=== PATIENT | female | born 1985 | race African-American/Black ===

== ENCOUNTER 2024-10-03 14:16 | Emergency (ER) | payer BC, SELFPAY ==
--- NOTE | ~2024-10-03 | XR_ITS ---
EXAMINATION: XR chest 2V Exam Date/Time: 10/03/2024 15:00 HOOK UP HISTORY: cp Comparison: None. RESULT: Lines, tubes, and devices: Right upper quadrant surgical clips. Lungs and pleura: Clear. Cardiomediastinal silhouette: Stable. Other: No acute osseous or upper abdominal finding. IMPRESSION: No acute cardiopulmonary process. Reviewed, dictated and finalized at location K. UP
--- NOTE | ~2024-10-03 | CT_ITS ---
EXAMINATION: CTA chest abdomen pelvis DATE: 10/03/2024 16:04 INDICATION: Chest and abdominal pain . TECHNIQUE: Computed tomography angiography of the chest, abdomen, and pelvis was performed with 150 m L Omnipaque-350 intravenous contrast in the arterial phase. Automated exposure control and iterative reconstruction technique were employed. The dose-length product was 666.26 mGy-cm. COMPARISON: X-ray chest, same date FINDINGS: CHEST: Thoracic aorta: No significant dilation. No dissection. Lung parenchyma and airways: Lungs and airways are clear. Thoracic inlet, axillae and chest wall: No thyroid or soft tissue mass. No axillary lymphadenopathy. Mediastinum: No mass or lymphadenopathy. Heart and pericardium: Normal heart size. No pericardial effusion. Coronary artery calcifications: Absent. Pleura: No effusion or mass. Thoracic bones: No acute osseous finding in the chest. ABDOMEN/PELVIS: Liver: Enlarged. Biliary/Gallbladder: Gallbladder is absent. No bile duct dilation. Pancreas: No mass or duct dilation. Spleen: Normal. Adrenals:No mass. Kidneys: No suspicious mass, obstructing stone, or hydronephrosis. GI tract: No small or large bowel dilation. Normal appendix. Mesentery/Peritoneum: No ascites, mass, or free air. Surgical clips anterior to the gastric antrum an d the posterior aspect of the liver dome. The latter may represent a dropped clip. Retroperitoneum: No mass . No dissection, aneurysm, or significant aortic branch vessel stenosis. Pelvis: Normal appearing urinary bladder partially filled with contrast. Absent uterus. Normal bilate ral ovaries. Soft Tissues: Small fat-containing umbilical hernia with mild soft tissue thickening and stranding. Abdominopelvic bones: No acute osseous finding in the abdomen/pelvis. IMPRESSION: Mild hepatomegaly. Possible dropped surgical clip at the liver dome. Mild soft tissue thickening and stranding at a small fat-containing umbilical hernia, correlate for c linical findings of inflammation/infection. Otherwise unremarkable CTA chest abdomen and pelvis findings. Reviewed, dictated and finalized at location K. CLERK IMPRESSION: Mild hepatomegaly. Possible dropped surgical clip at the liver dome. Mild soft tissue thickening and stranding at a small fat-containing umbilical h ernia, correlate for clinical findings of inflammation/infection. Otherwise unremarkable CTA chest abdomen and pelvis findings.
[2024-10-03 14:18] VITALS: BP 210/113; PULSE 92; RESP 18; TEMP 36.7; O2SAT 100
--- NOTE | 2024-10-03 14:25 | ECG_ITS ---
Test Date: 2024-10-03 14:29:24 Measurements Intervals [place] Rate: 82 P: 59 UT: 212 QRS: -29 QRSD: 92 T: 80 QT: 374 QTc: 437 Interpretive Statements SINUS RHYTHM WITH FIRST DEGREE AV BLOCK BORDERLINE LEFT AXIS DEVIATION [QRS AXIS < -20] VOLTAGE CRITERIA FOR LVH [MEETS CRITERIA IN ONE OF: R(aVL), S(V1), R(V5), R(V5/V6)+S(V1)] NONSPECIFIC T-WAVE ABNORMALITY No previous ECG available for comparison Electronically Signed On 10-04-2024 18:12:41 [employer] CONCIERGE by Rowdy Baez M.D.
[2024-10-03 14:35] LABS: Basophils Absolute Auto 0.1 K/mm3 (0.0-0.1); Basophils Percent Auto 0.9 % (0.2-1.2); Eosinophils Absolute Auto 0.2 K/mm3 (0-0.3); Eosinophils Percent Auto 3.5 % (0-4.4); Hematocrit 42.2 % (37.0-47.0); Immature Granulocyte Absolute 0.01 K/mm3 (0.00-0.031); Immature Granulocyte Percent A 0.2 % (0-0.5); Lymphocytes Absolute Auto 2.02 K/mm3 (0.9-3.2); Lymphocytes Percent Auto 37.4 % (18.3-44.2); Mean Corpuscular HGB Conc 33.2 g/dl (32-36); Mean Corpuscular Hemoglobin 26.9 pg (26-34); Mean Corpuscular Volume 81.2 fl (80-100); Mean Platelet Volume 9.8 fl (7.4-10.4); Monocytes Absolute Auto 0.4 K/mm3 (0.1-0.6); Monocytes Percent Auto 7.4 % (2.6-8.5); Neutrophils Absolute Auto 2.7 K/mm3 (1.3-6.7); Neutrophils Percent Auto 50.6 % (45.5-73.1); Platelet Count Result 253 k/mm3 (150-375); Red Cell Distribution Width 14.5 % (11.5-14.5); White Blood Count 5.4 K/mm3 (4.5-10.0)
--- NOTE | 2024-10-03 14:40 | ED_ITS ---
HPI - Chest Pain General Chief Complaint: Chest Pain Stated Complaint: chest pain Time Seen by Provider: 10/03/24 14:26 Source: patient Mode of arrival: ambulatory Limitations: no limitations History of Present Illness HPI narrative: This is a 38-year-old female, with reported history of cardiac disease after a , who presents emergency department complaining of substernal chest pain radiating to the left arm for the past 3 days. She describes the pain as sharp, radiating to the midback without any obvious aggravating or alleviating factors. She denies associated nausea, vomiting, abdominal pain or shortness of breath. She has no other complaints at this time. Related Data Allergies Allergy/AdvReac Type Severity Reaction Status Date / Time codeine Allergy Rash Verified 10/03/24 14:50 Penicillins Allergy Rash Verified 10/03/24 14:50 Review of Systems 2 Review of Systems: All systems reviewed & are unremarkable except as noted in HPI and below PMFSH Past Medical History Medical History Hypertension Surgical History Surgical History History of partial hysterectomy Social History Social History Smoking status: Current every day smoker Alcohol intake: current Substance use: current Substance use type: marijuana Exam 2 Narrative: GENERAL: Well-developed, well-nourished, and in no acute distress. HEAD: Normocephalic, atraumatic. EYES: PERRLA and EOMI. ENT: Nares clear, no rhinorrhea or epistaxis. Mucous membranes moist. Oropharynx without tonsillar hypertrophy exudate or other lesions. Bilateral TMs pearly calloway nonbulging NECK: Supple. No adenopathy or masses. No carotid bruits or JVD CHEST: Clear to auscultation. No respiratory distress. No wheezes rales or rhonchi HEART: Regular rate and rhythm. No murmur heard. Normal peripheral pulses. ABDOMEN: Soft, nontender, nondistended, normal active bowel sounds. EXTREMITIES: Normal range of motion. No edema. SKIN: Warm, dry, no rash. NEURO: Alert and oriented x3. No focal deficit. Moving all 4 limbs spontaneously PSYCH: Normal mood and affect. Course Course Emergency Course: 18:00 - Initial troponin negative. EKG not concerning for ischemia. Chest x- ray unremarkable. Cbc and chemistries unremarkable, including a lipase within normal limits. CT dissection protocol not concerning for dissection, or acute intra thoracic process. Incidentally, a surgical clip is noted at the dome of the liver and is thought to be a dropped clip. There is also an umbilical hernia with some fat stranding. The patient denies abdominal pain and exam does not elicit pain. Considering the patient's cardiac history, I discussed management options, including admission for observation verses repeat troponin and outpatient follow-up. The patient elects latter pending repeat results. 18:29 - Repeat troponin negative. The patient's blood pressure has improved without direct intervention. Will discharge with refill of the patient's Coreg and recommendation for primary care follow-up. I discussed the findings and recommendations with the patient. Discussed return and emergency precautions including signs/symptoms of ACS and respiratory distress. The patient voiced understanding and agreement with the plan. All questions answered to her satisfaction. Vital Signs Vital signs: Vital Signs Temperature 98.0 F 10/03/24 14:18 Pulse Rate 92 10/03/24 14:18 Respiratory Rate 18 10/03/24 14:18 Blood Pressure 210/113 H 10/03/24 14:18 Pulse Oximetry 100 10/03/24 14:18 Oxygen Delivery Room Air 10/03/24 14:18 Temperature 98.0 F 10/03/24 14:18 Pulse Rate 58 L 10/03/24 17:12 Respiratory Rate 16 10/03/24 17:12 Blood Pressure 162/115 H 10/03/24 17:12 Pulse Oximetry 100 10/03/24 17:12 Oxygen Delivery Room Air 10/03/24 14:44 MDM - Chest Pain MDM Narrative Medical decision making narrative: Plan: Labs, imaging, EKG, troponin, pain control, reassess Differential Diagnosis Differential diagnosis: Likely pneumothorax, costochondritis, biliary colic and other (ACS, dissection, pancreatitis, pleurisy, pericarditis, pneumonia, metabolic abnormality, other) Lab Data 10/03/24 14:30 10/03/24 14:30 Labs: Lab Results 10/03/24 10/03/24 Range/Units 14:30 17:19 WBC 5.4 (4.5-10.0) K/mm3 RBC 5.20 (4.2-5.4) M/mm3 Hgb 14.0 (12.0-15.0) g/dL Hct 42.2 (37.0-47.0) % MCV 81.2 (80-100) fl MCH 26.9 (26-34) pg MCHC 33.2 (32-36) g/dl RDW 14.5 (11.5-14.5) % Plt Count 253 (150-375) k/mm3 MPV 9.8 (7.4-10.4) fl Immature Gran % (Auto) 0.2 (0-0.5) % Neut % (Auto) 50.6 (45.5-73.1) % Lymph % (Auto) 37.4 (18.3-44.2) % Rains % (Auto) 7.4 (2.6-8.5) % Eos % (Auto) 3.5 (0-4.4) % Baso % (Auto) 0.9 (0.2-1.2) % Lymph # (Auto) 2.02 (0.9-3.2) K/mm3 Rains # (Auto) 0.4 (0.1-0.6) K/mm3 Eos # (Auto) 0.2 (0-0.3) K/mm3 Baso # (Auto) 0.1 (0.0-0.1) K/mm3 Abs Immat Gran (auto) 0.01 (0.00-0.031) K/mm3 Absolute Neuts (auto) 2.7 (1.3-6.7) K/mm3 Absolute Nucleated RBC 0.000 (0.0-0.012) K/mm3 Nucleated RBC % 0.0 (0.0-0.2) % PT 14.2 (11.1-14.7) Seconds INR 1.1 APTT 31.9 (22.3-36.8) Seconds Sodium 140 (137-145) mmol/L Potassium 3.8 (3.4-5.0) mmol/L Chloride 101 (98-107) mmol/L Carbon Dioxide 27 (22-30) mmol/L Anion Gap 12 (4-12) mmol/L BUN 15 (7-17) mg/dL Creatinine 0.95 (0.7-1.0) mg/dL Estim Creat Clear Calc 79 ml/min Estimated GFR > 60 (59 - ) Glucose 70 (65-110) mg/dL Calcium 9.8 (8.4-10.2) mg/dL Total Bilirubin 0.6 (0.2-1.3) mg/dL AST 31 (14-36) U/L ALT 19 (6-35) U/L Alkaline Phosphatase 70 (38-126) U/L Troponin I < 0.012 < 0.012 (0.000-0.034) ng/mL Total Protein 8.0 (6.3-8.2) g/dL Albumin 4.9 (3.5-5.1) g/dL Lipase 145 (23-300) U/L ECG Data EKG #1: Attestation: I personally reviewed and interpreted this ECG as follows: ECG completion date: 10/03/24 ECG completion time: 14:29 Prior ECG tracings: not available for review Interpretation: Sinus rhythm, rate 82, left axis deviation, no ST segment elevations concerning for ischemia, T-wave inversions in lead 1 and aVL, first-degree AV block, otherwise normal intervals with QTC of 412. Discharge Plan Discharge Clinical Impression: Chest pain Qualifiers: Chest pain type: unspecified Qualified Code(s): R07.9 - Chest pain, unspecified Hypertension Qualifiers: Hypertension type: unspecified Qualified Code(s): I10 - Essential (primary) hypertension Patient Disposition: Home, Self-Care Condition: Stable Instructions: Antibiotic Form, Chest Pain (ED) Additional Instructions: You were seen in the emergency department. Your labs and EKG are not concerning for ongoing injury to the heart. A CT scan of the chest abdomen and pelvis was not concerning for injury to the large vessel or ongoing process within the lungs, however it does demonstrate a surgical clip at the top of the liver that appears to be misplaced. If you develop new or worsening chest pain, shortness of breath, loss of consciousness, or if you have other emergent concerns for life, limb, or eyesight, return to the emergency department. Patient Language: Qatari Prescriptions: New carvedilol [Coreg] 12.5 mg tablet 12.5 mg PO Q12H Qty: 60 0RF Rx Instructions: must administer with a meal/food Follow-up/Referrals: PHYSICIAN NOT ON STAFF,NONSTAFF [Non-Staff] - Jeffery Barahona MD [Physician] - 1 Week Time of Disposition: 18:29
[2024-10-03 14:45] VITALS: BP 209/111; PULSE 73; RESP 16; O2SAT 100
[2024-10-03 14:50] LABS: Alanine Aminotransferase 19 U/L (6-35); Albumin Level 4.9 g/dL (3.5-5.1); Alkaline Phosphatase 70 U/L (38-126); Anion Gap 12 mmol/L (4-12); Aspartate Amino Transferase 31 U/L (14-36); Bilirubin,Total 0.6 mg/dL (0.2-1.3); Blood Urea Nitrogen 15 mg/dL (7-17); Calcium 9.8 mg/dL (8.4-10.2); Carbon Dioxide 27 mmol/L (22-30); Chloride 101 mmol/L (98-107); Estimated CRCL calculation 79 ml/min; Estimated Glomerular Filt Rate > 60; Glucose 70 mg/dL (65-110); Lipase 145 U/L (23-300); Potassium 3.8 mmol/L (3.4-5.0); Sodium 140 mmol/L (137-145)
[2024-10-03] MEDS: NITROGLYCERIN SL 0.4 MG TABLET SUBLINGUAL (14:50)
[2024-10-03] MEDS: MORPHINE SULFATE (*CRX) 4 MG/ML INJ IV PUSH (14:51)
[2024-10-03] MEDS: ASPIRIN 81 MG CHEWABLE TABLET 324 MG PO (14:53)
[2024-10-03 14:56] LABS: INR 1.1; Prothrombin Time 14.2 Seconds (11.1-14.7)
[2024-10-03 14:57] LABS: Partial Thromboplastin Time 31.9 Seconds (22.3-36.8)
[2024-10-03 15:01] LABS: Troponin I < 0.012 ng/mL (0.000-0.034)
--- NOTE | 2024-10-03 17:06 | ECG_ITS ---
Test Date: 2024-10-03 17:16:48 Measurements Intervals [place] Rate: 58 P: 7 VT: 210 QRS: -30 QRSD: 97 T: 73 QT: 444 QTc: 437 Interpretive Statements SINUS BRADYCARDIA WITH FIRST DEGREE AV BLOCK BORDERLINE LEFT AXIS DEVIATION [QRS AXIS < -20] POSSIBLE LEFT VENTRICULAR HYPERTROPHY [VOLTAGE CRITERIA PLUS LAE OR QRS WIDENING] NONSPECIFIC T-WAVE ABNORMALITY Compared to ECG 10/03/2024 14:29:24 Sinus rhythm no longer present T-wave abnormality still present Electronically Signed On 10-04-2024 18:11:34 BARREL SCRAPER by Rowdy Baez M.D.
[2024-10-03 17:12] VITALS: BP 162/115; PULSE 58; RESP 16; O2SAT 100
[2024-10-03 18:17] LABS: Troponin I < 0.012 ng/mL (0.000-0.034)
[2024-10-03 19:19] VITALS: BP 173/99; PULSE 69; RESP 16; O2SAT 99
--- OUTSIDE RECORDS SUMMARY | 2024-10-07 10:44 | XMS_ITS | Clinical Summary ---
Author Organization [place] [id number] [facility] Address [address] [place] [address] Care Team Providers Care Licensed Mass Real Estate Appraiser Name Role Phone Francheska Andrea NP Primary Care Provider +1- [phone] Allergies Active Allergy Reactions Criticality Noted Date Comments Codeine Phenytoin Medications No known medications Active Problems Problem Noted Date Diagnosed Date High-risk 10/18/2013 Epilepsy 10/18/2013 Social History Tobacco Use Types Packs/Day Years Used Date Smoking Tobacco: Never Assessed Personal Safety Answer Date Recorded Have you ever been in or are you currently in a harmful physical or emotional relationship or is someone making you feel afraid or unsafe? 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 Gender Identity Not on file Sexual Orientation Not on file Obstetrics History Last Filed Vital Signs Vital Sign Reading Time Taken Comments Blood Pressure 131/72 04/22/2023 7:30 PM CDT Pulse 99 04/22/2023 7:30 PM CDT Temperature - - Respiratory Rate 14 04/22/2023 7:30 PM CDT Oxygen Saturation 97% 04/22/2023 7:30 PM CDT Inhaled Oxygen Concentration - - Weight 98.4 kg (217 lb) 04/22/2023 4:40 PM CDT Height - - Body Mass Index - - Plan of Treatment Health Maintenance Due Date Last Done Comments Cervical Cancer Screening 1984 Depression Screening 1984 Hepatitis C Screening 1984 Varicella Vaccines (1 of 2 - 13+ 2-dose series) 1997 DTaP/Tdap/Td Vaccine (1 - Tdap) 11/20/2000 1 Regular Well Visit/Exam 18-64 2002 Influenza Vaccine (#1) 2024 HPV Vaccines Aged Out No longer eligi ble based on patient's age to complete this topic Pneumococcal vaccine <65 Aged Out No longer eligible based on patient's age to complete this topic Insurance [facility] Care Teams Licensed Mass Real Estate Appraiser Relationship Specialty Start Date End Date Francheska Andrea NP PCP - General Nurse Practitioner 04/22/23
--- OUTSIDE RECORDS SUMMARY | 2024-10-07 10:44 | XMS_ITS | Referral Summary ---
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 Gender Identity Not on file Sexual Orientation Not on file Last Filed Vital Signs Vital Sign Reading [...] Mass Index - - Plan of Treatment [place] [address] [facility] Member Subscriber Plan / Payer (Ef fective 2020-Present) Name:Shanna Awad Relation to Subscriber:Self Name:Shanna Awad Payer ID:[id number] (NAIC) Group ID:[id number] Type:MEDICAID RISK OTHER Address: [address] [place] [id number] Care Teams Purification Director Relationship Specialty Start Date End Date Francheska Andrea NP PCP - General Nurse Practitioner 04/22/23
== END 2024-10-03 19:21 | disposition home or self-care (01) ==
PROVIDERS: Emergency Provider Preventive Medicine Aerospace Medicine
DX: R07.2 Precordial pain (principal); I10 Essential (primary) hypertension; F17.200 Nicotine dependence, unspecified, uncomplicated; Z90.711 Acquired absence of uterus with remaining cervical stump; I44.0 Atrioventricular block, first degree; R94.31 Abnormal electrocardiogram [ECG] [EKG]; R16.0 Hepatomegaly, not elsewhere classified
CPT/HCPCS: 36415; 71046; 71275; 74174; 80053; 83690; 84484; 85025; 85610; 85730; 93005; 96374; 99284; A9270; J2270; Q9967

== ENCOUNTER 2024-10-04 12:30 | Inpatient (IN) | payer BC, SELFPAY ==
[2024-10-04] VITALS (25 sets, daily range): BP systolic 147–236; BP diastolic 79–123; PULSE 65–94; RESP 5–24; TEMP 36.7–37; O2SAT 96–100; BMI 31.3
--- NOTE | ~2024-10-04 | US_ITS ---
Limited Abdominal Sonogram: Real-time sonographic imaging of the right upper quadrant was performed. Clinical History: Abnormal LFTs Findings: The liver appears normal with no evidence of mass lesion or bile duct dilatation. Main por gavino vein demonstrates normal direction of flow. The gallbladder is absent, compatible prior cholecyst ectomy. The common bile duct measures 5 mm. The visualized pancreas, aorta, and IVC are unremarkable . Impression: Status post cholecystectomy, otherwise unremarkable exam. Reviewed, dictated and finalized at location . ROPOLOGY LECTURER Impression: Status post cholecystectomy, otherwise unremarkable exam.
--- NOTE | ~2024-10-04 | XR_ITS ---
EXAMINATION: XR chest 1V portable DATE: 10/04/2024 13:27 INDICATION: Chest pain TECHNIQUE: frontal view of the chest was obtained. COMPARISON: Chest radiograph and CT dated 10/03/2024 FINDINGS: The lungs remain clear with no focal airspace opacities, pulmonary edema, pleural effusion or pneumot horax. The cardiomediastinal silhouette is normal. Cholecystectomy clips in the right upper quadrant. IMPRESSION: 1. No acute cardiopulmonary disease. Reviewed, dictated and finalized at location A. LIANCE QUALITY PERFORMANCE ANALYST
--- NOTE | 2024-10-04 13:13 | ECG_ITS ---
Test Date: 2024-10-04 14:32:19 Measurements Intervals [place] Rate: 69 P: 53 [place]: 234 QRS: -35 QRSD: 98 T: 61 QT: 428 QTc: 460 Interpretive Statements SINUS RHYTHM WITH FIRST DEGREE AV BLOCK LEFT AXIS DEVIATION [QRS AXIS < -30] POSSIBLE LEFT VENTRICULAR HYPERTROPHY [VOLTAGE CRITERIA PLUS LAE OR QRS WIDENING] NONSPECIFIC T-WAVE ABNORMALITY Compared to ECG 10/03/2024 17:16:48 Sinus bradycardia no longer present T-wave abnormality still present Electronically Signed On 10-04-2024 17:58:44 BU[employer]ING [employer]EL FORMER MACHINE by Rowdy Baez M.D.
[2024-10-04 13:44] LABS: Basophils Absolute Auto 0.1 K/mm3 (0.0-0.1); Basophils Percent Auto 1.5 % (0.2-1.2); Eosinophils Absolute Auto 0.1 K/mm3 (0-0.3); Eosinophils Percent Auto 2.3 % (0-4.4); Hematocrit 41.9 % (37.0-47.0); Hemoglobin 13.9 g/dL (12.0-15.0); Lymphocytes Absolute Auto 1.75 K/mm3 (0.9-3.2); Lymphocytes Percent Auto 44.5 % (18.3-44.2); Mean Corpuscular HGB Conc 33.2 g/dl (32-36); Mean Corpuscular Volume 81.5 fl (80-100); Mean Platelet Volume 9.9 fl (7.4-10.4); Monocytes Absolute Auto 0.3 K/mm3 (0.1-0.6); Monocytes Percent Auto 7.6 % (2.6-8.5); Neutrophils Absolute Auto 1.7 K/mm3 (1.3-6.7); Neutrophils Percent Auto 44.1 % (45.5-73.1); Platelet Count Result 236 k/mm3 (150-375); Red Blood Count 5.14 M/mm3 (4.2-5.4); Red Cell Distribution Width 14.5 % (11.5-14.5); White Blood Count 3.9 K/mm3 (4.5-10.0)
[2024-10-04 13:51] LABS: Add Urine Microscopic? NO; Appearance Urine Clear (Clear); Bilirubin Urine Negative (Negative); Blood Urine Negative (Negative); Color Urine Yellow (Yellow); Glucose Urine UA Negative (Negative); Ketones Urine Negative (Negative); Leukocyte Esterase Ur Negative LEU/UL (Negative); Nitrate Urine Negative (Negative); Protein Urine Negative (Negative); Specific Grav Ur 1.016 (1.001-1.035); Urobilinogen Urine 0.2 mg/dL (<2.0)
[2024-10-04 13:55] LABS: INR 1.1; Prothrombin Time 14.1 Seconds (11.1-14.7)
[2024-10-04 13:56] LABS: Partial Thromboplastin Time 33.3 Seconds (22.3-36.8)
[2024-10-04] MEDS: hydrALAZINE HCL 20 MG/ML VIAL 10 MG IV PUSH (14:00)
[2024-10-04] MEDS: ONDANSETRON INJ 4 MG/2 ML VIAL IV PUSH (14:00)
[2024-10-04 15:20] LABS: Alanine Aminotransferase 138 U/L (6-35); Albumin Level 4.7 g/dL (3.5-5.1); Alkaline Phosphatase 76 U/L (38-126); Anion Gap 8 mmol/L (4-12); Aspartate Amino Transferase 195 U/L (14-36); Bilirubin,Total 0.5 mg/dL (0.2-1.3); Blood Urea Nitrogen 13 mg/dL (7-17); Calcium 9.6 mg/dL (8.4-10.2); Carbon Dioxide 33 mmol/L (22-30); Chloride 97 mmol/L (98-107); Estimated CRCL calculation 80 ml/min; Estimated Glomerular Filt Rate > 60; Glucose 84 mg/dL (65-110); Lipase 42 U/L (23-300); Potassium 3.3 mmol/L (3.4-5.0); Sodium 138 mmol/L (137-145)
[2024-10-04 15:32] LABS: NT Pro B Type Natriuretic Pept 728 pg/mL (19.9-100); Troponin I 0.017 ng/mL (0.000-0.034)
--- NOTE | 2024-10-04 15:57 | ED.GENADULT ---
HPI - General Adult General Chief complaint: Recheck/Abnormal Lab/Rx Stated complaint: high BP Time Seen by Provider: 10/04/24 13:07 History of Present Illness HPI narrative: Patient 38-year-old female who presents emergency department with chief complaint of hypertension. Patient reports that she has history of hypertension has been off of medications was seen in the emergency department over the weekend and was given a prescription for Coreg the patient reports she was unable to get it filled and reports that she has full been having some tightness in her chest at times. The patient states she is our primary care provider today who recommended that she come back to the emergency department as her blood pressure was in the 200s. Related Data Allergies Allergy/AdvReac Type Severity Reaction Status Date / Time codeine Allergy Rash Verified 10/03/24 14:50 Penicillins Allergy Rash Verified 10/03/24 14:50 Review of Systems Review of Systems: A 10 system review of systems was completed on the patient and is negative except for what is stated in the HPI. Nursing and ancillary documentation was reviewed. [facility], [facility] Past Medical History Medical History Hypertension Surgical History Surgical History History of partial hysterectomy Social History Social History Smoking status: Current every day smoker Alcohol intake: current Substance use: current Substance use type: marijuana Exam Narrative: GENERAL: Well-appearing, well-nourished, and in no acute distress. HEAD: Normocephalic, atraumatic. EYES: PERRLA and EOMI. ENT: Nares clear, no rhinorrhea or epistaxis. Mucous membranes moist. NECK: Supple. CHEST: Clear to auscultation. No respiratory distress. HEART: Regular rate and rhythm. No murmur heard. Normal peripheral pulses. ABDOMEN: Soft, nontender, nondistended, normal active bowel sounds. EXTREMITIES: Normal range of motion. No edema. SKIN: Warm, dry, no rash. NEURO: No focal deficits. Alert and oriented x3. PSYCH: Normal mood and affect. Course Vital Signs Vital signs: Vital Signs Temperature 36.7 C 10/04/24 13:08 Pulse Rate 65 10/04/24 13:08 Respiratory Rate 13 10/04/24 13:08 Blood Pressure 225/123 H 10/04/24 13:08 Pulse Oximetry 99 10/04/24 13:08 Oxygen Delivery Room Air 10/04/24 13:08 Temperature 36.7 C 10/04/24 14:31 Pulse Rate 73 10/04/24 15:01 Respiratory Rate 12 10/04/24 15:01 Blood Pressure 188/89 H 10/04/24 15:01 Pulse Oximetry 100 10/04/24 15:01 Oxygen Delivery Room Air 10/04/24 13:08 Medical Decision Making Vital Signs Vital Signs: Vital Signs Temperature 36.7 C 10/04/24 13:08 Pulse Rate 65 10/04/24 13:08 Respiratory Rate 13 10/04/24 13:08 Blood Pressure 225/123 H 10/04/24 13:08 Pulse Oximetry 99 10/04/24 13:08 Oxygen Delivery Room Air 10/04/24 13:08 Temperature 36.7 C 10/04/24 14:31 Pulse Rate 73 10/04/24 15:01 Respiratory Rate 12 10/04/24 15:01 Blood Pressure 188/89 H 10/04/24 15:01 Pulse Oximetry 100 10/04/24 15:01 Oxygen Delivery Room Air 10/04/24 13:08 Lab Data 10/04/24 13:37 10/04/24 13:37 Labs: Lab Results 10/04/24 10/04/24 Range/Units 13:37 13:42 WBC 3.9 L (4.5-10.0) K/mm3 RBC 5.14 (4.2-5.4) M/mm3 Hgb 13.9 (12.0-15.0) g/dL Hct 41.9 (37.0-47.0) % MCV 81.5 (80-100) fl MCH 27.0 (26-34) pg MCHC 33.2 (32-36) g/dl RDW 14.5 (11.5-14.5) % Plt Count 236 (150-375) k/mm3 MPV 9.9 (7.4-10.4) fl Immature Gran % (Auto) 0.0 (0-0.5) % Neut % (Auto) 44.1 L (45.5-73.1) % Lymph % (Auto) 44.5 H (18.3-44.2) % Fisher % (Auto) 7.6 (2.6-8.5) % Eos % (Auto) 2.3 (0-4.4) % Baso % (Auto) 1.5 H (0.2-1.2) % Lymph # (Auto) 1.75 (0.9-3.2) K/mm3 Fisher # (Auto) 0.3 (0.1-0.6) K/mm3 Eos # (Auto) 0.1 (0-0.3) K/mm3 Baso # (Auto) 0.1 (0.0-0.1) K/mm3 Abs Immat Gran (auto) 0.00 (0.00-0.031) K/mm3 Absolute Neuts (auto) 1.7 (1.3-6.7) K/mm3 Absolute Nucleated RBC 0.000 (0.0-0.012) K/mm3 Nucleated RBC % 0.0 (0.0-0.2) % PT 14.1 (11.1-14.7) Seconds INR 1.1 APTT 33.3 (22.3-36.8) Seconds Sodium 138 (137-145) mmol/L Potassium 3.3 L (3.4-5.0) mmol/L Chloride 97 L (98-107) mmol/L Carbon Dioxide 33 H (22-30) mmol/L Anion Gap 8 (4-12) mmol/L BUN 13 (7-17) mg/dL Creatinine 0.94 (0.7-1.0) mg/dL Estim Creat Clear Calc 80 ml/min Estimated GFR > 60 (59 - ) Glucose 84 (65-110) mg/dL Calcium 9.6 (8.4-10.2) mg/dL Total Bilirubin 0.5 (0.2-1.3) mg/dL AST 195 H (14-36) U/L ALT 138 H (6-35) U/L Alkaline Phosphatase 76 (38-126) U/L Troponin I 0.017 (0.000-0.034) ng/mL NT-Pro-B Natriuret Pep 728 H (19.9-100) pg/mL Total Protein 8.0 (6.3-8.2) g/dL Albumin 4.7 (3.5-5.1) g/dL Lipase 42 (23-300) U/L Urine Color Yellow (Yellow) Urine Appearance Clear (Clear) Urine pH 6.0 (5.0-9.0) Ur Specific [place] 1.016 (1.001-1.035) Urine Protein Negative (Negative) mg/dL Urine Glucose (UA) Negative (Negative) mg/dL Urine Ketones Negative (Negative) mg/dL Ur Blood (Man) Negative (Negative) Urine Nitrate Negative (Negative) Urine Bilirubin Negative (Negative) Urine Urobilinogen 0.2 (<2.0) mg/dL Leukocyte Esterase Rfl Negative (Negative) [place]/[facility] Discharge Plan Discharge Clinical Impression: Hypertensive urgency Patient Language: Divehi Prescriptions: No Action carvedilol [Coreg] 12.5 mg tablet 12.5 mg PO Q12H Qty: 60 0RF Rx Instructions: must administer with a meal/food Follow-up/Referrals: PHYSICIAN,NIB INSPECTOR [Primary Care Provider] -
--- NOTE | 2024-10-04 16:29 | ECG_ITS ---
Test Date: 2024-10-04 16:31:47 Measurements Intervals [place] Rate: 68 P: 46 [place]: 227 QRS: -35 QRSD: 94 T: 62 QT: 416 QTc: 445 Interpretive Statements SINUS RHYTHM WITH SINUS ARRHYTHMIA WITH FIRST DEGREE AV BLOCK POSSIBLE LEFT ATRIAL ENLARGEMENT [-0.1mV P-WAVE IN V1/V2] LEFT AXIS DEVIATION [QRS AXIS < -30] POSSIBLE LEFT VENTRICULAR HYPERTROPHY [VOLTAGE CRITERIA PLUS LAE OR QRS WIDENING] NONSPECIFIC T-WAVE ABNORMALITY Compared to ECG 10/04/2024 14:32:19 No significant changes Electronically Signed On 10-04-2024 17:54:45 PROCESSOR [employer]ID [employer]OPELLANT by Rowdy Baez M.D.
[2024-10-04] MEDS: POTASSIUM CHLORIDE 20 MEQ PACKET (FOR LIQUID) PO (16:36)
[2024-10-04 16:45] LABS: Magnesium 1.7 mg/dL (1.6-2.3)
[2024-10-04 16:56] LABS: Troponin I 0.017 ng/mL (0.000-0.034)
--- NOTE | 2024-10-04 17:00 | PM.IMHP ---
H&P: HPI History of Present Illness Date/Time: 10/04/24 17:00 Chief Complaint: High blood pressure. Narrative: This is a very pleasant 38-year-old female with history of migraines, epilepsy, hypertension, and asthma who presented to the emergency department via private vehicle for evaluation of high blood pressure. The patient provides the following history. She was on medication for epilepsy and hypertension but has been off of them for a couple of years ago. At times she will monitor her blood pressure while at [employer] or [employer] and reports that is a bit elevated but not significantly so. Yesterday at work she noticed that her left arm was swollen and painful however she currently has tennis elbow in his wearing a brace. She went to the health office at work and at that time they found her blood pressure to be well over 200 and she was encouraged to go to the emergency department. CT of the chest, abdomen, and pelvis did not show any acute findings and her labs were unremarkable. She was given a prescription for carvedilol 12.5 mg q.12 hours which she he took previously. She had a follow-up appointment with her new primary care provider today and her blood pressure was 245 systolic and she was referred back to the ED. She is no longer having pain in her left arm but does have a low-grade headache. She denies vertigo, visual changes, chest pain, shortness of breath, nausea, vomiting, hematuria, orthopnea, and edema. No known history of cardiac or renal disease. No history of sleep apnea but she does endorse occasional paroxysmal nocturnal dyspnea. In the ED: Blood pressure was 225/123 on arrival to ED. the remainder of her vital signs were normal. Labs were significant for a WBC count of 3.9, potassium 3.3, chloride 97, carbon dioxide 33, AST 195, ALT 138, proBNP 728, troponin 0.017. Urinalysis was unremarkable. Chest x-ray showed no acute cardiopulmonary disease. EKG showed sinus rhythm with first-degree AV block, left axis deviation, possible left ventricular hypertrophy as well as nonspecific T-wave abnormalities. She received hydralazine 10 mg IV x1 with improvement in her blood pressure to 188/89. She is being admitted in this setting for closer monitoring and to reinitiate antihypertensives. Review of Systems Review of Systems: 12 systems were reviewed and are negative except for as per HPI. [facility] Past Medical History Medical History (Updated 10/04/24 @ 22:47 by Dora Cox PA-C) Epilepsy Migraine Hypertension Surgical History Surgical History History of partial hysterectomy Family History Family History Father Seizure Mother Seizure Mother Brain aneurysm Grandparent Diabetes mellitus Heart disease Social History Social History (Updated 10/04/24 @ 22:45 by Dora Cox PA-C) Social History: Surrogate medical decision maker: bijan Nazario. Code status: Full code. Smoking status: Current every day smoker Tobacco type: e-cigarettes/vaping Alcohol intake: current Drinks per week: 0 Substance use: never Substance use type: does not use Do You Feel Safe in your Home?: Yes Lack of Transportation: No Lack of Food: Never True Current Housing: I Have Housing Concerned About Future Housing: No Difficulty Paying Gas/Electric Bills: No Difficulty Paying for Meds: No Currently Unemployed: No Education: Associate Degree Difficulty w/ Childcare or Family Care: No Additional living arrangements comments: Lives with aliya and 3 children. Spiritual care concerns: No Meds Home Medications and Allergies Home Medications ?Medication ?Instructions ?Recorded ?Confirmed ?Type carvedilol 12.5 mg tablet (Coreg) 12.5 mg PO Q12H #60 tabs 10/03/24 10/04/24 Rx Allergies Allergy/AdvReac Type Severity Reaction Status Date / Time codeine Allergy Rash Verified 10/04/24 18:09 Penicillins Allergy Rash Verified 10/04/24 18:09 Vital Signs Vital Signs - 24 hr 10/04/24 13:08 10/04/24 13:18 10/04/24 13:21 Temperature 98.0 F 98.0 F Pulse Rate 65 69 Respiratory Rate 13 15 14 Blood Pressure 225/123 H 225/123 H Pulse Oximetry 99 100 100 Oxygen Delivery Room Air 10/04/24 14:31 10/04/24 15:01 Temperature 98.1 F Pulse Rate 72 73 Respiratory Rate 17 12 Blood Pressure 193/109 H 188/89 H Pulse Oximetry 100 100 Oxygen Delivery Exam Narrative: General: Nontoxic-appearing female sitting up in bed in no acute distress. Weight: 88.1 kg. BMI: 31.3. HEENT: PERRL, EOMI. Sclera anicteric. Oral mucosa moist. Oropharynx clear. Neck: Supple. Respiratory: Lungs are clear to auscultation bilaterally. Cardiovascular: Regular rate and rhythm with S1-S2. Gastrointestinal: Abdomen is soft, nontender, and nondistended with positive bowel sounds. Skin: Warm and dry. No rash or lesions on limited exam. Extremities: No cyanosis, clubbing, or edema. Radial and pedal pulses intact. No edema. Neurological: Alert. Cranial nerves 2-12 are grossly intact. No gross focal deficits to casual conversation. Psychiatric: Pleasant and cooperative with normal mood and affect. Judgment and insight intact. H&P: Results Labs Labs: Short CBC 10/04/24 Range/Units 13:37 WBC 3.9 L (4.5-10.0) K/mm3 Hgb 13.9 (12.0-15.0) g/dL Hct 41.9 (37.0-47.0) % Plt Count 236 (150-375) k/mm3 BMP 10/04/24 13:37 Sodium 138 Potassium 3.3 L Chloride 97 L Carbon Dioxide 33 H BUN 13 Creatinine 0.94 Glucose 84 Calcium 9.6 Cardiac Enzymes 10/04/24 10/04/24 Range/Units 13:37 16:22 Troponin I 0.017 0.017 (0.000-0.034) ng/mL Liver Function 10/04/24 Range/Units 13:37 Total Bilirubin 0.5 (0.2-1.3) mg/dL AST 195 H (14-36) U/L ALT 138 H (6-35) U/L Alkaline Phosphatase 76 (38-126) U/L Albumin 4.7 (3.5-5.1) g/dL Urine 10/04/24 Range/Units 13:42 Urine Color Yellow (Yellow) Urine Appearance Clear (Clear) Urine pH 6.0 (5.0-9.0) Ur Specific [place] 1.016 (1.001-1.035) Urine Protein Negative (Negative) mg/dL Urine Glucose (UA) Negative (Negative) mg/dL Impressions Chest X-Ray 10/04/24 13:30 IMPRESSION: 1. No acute cardiopulmonary disease. Assessment and Plan Assessment and plan (1) Hypertensive urgency: Code(s): I16.0 - Hypertensive urgency Status: Acute (2) Hypokalemia: Code(s): E87.6 - Hypokalemia Status: Acute (3) Elevated LFTs: Code(s): R79.89 - Other specified abnormal findings of blood chemistry Status: Acute (4) Suspected sleep apnea: Code(s): R29.818 - Other symptoms and signs involving the nervous system Status: Acute (5) Epilepsy: Code(s): G40.909 - Epilepsy, unspecified, not intractable, without status epilepticus Status: Acute Plan The patient presented to the emergency department for evaluation after she was found to have a blood pressure of 240 systolic as detailed in HPI. Labs, imaging, EKG, and all reports were personally reviewed. She has been off antihypertensives for 2 years and was previously on carvedilol, amlodipine, and hydrochlorothiazide. Blood pressure did improve with hydralazine and over the course of 4 more hours has continued to drop without further medication. She reports an increase in stress recently which may be contributing to her blood pressure spikes. As such we do not want to start her back on all of her medications until we see how she responds thus will start low-dose amlodipine this evening. Echocardiogram and renal duplex ordered for further evaluation. Potassium will be replaced and monitored. She has concerns for sleep apnea and an ApneaLink has been ordered. AST and ALT and a hepatitis panel and right upper quadrant ultrasound have been ordered; her abdominal exam is benign. Findings and treatment plan were discussed with the patient. Questions were solicited and answered to satisfaction. The patient's medical management will be taken over by the hospitalist team in a.m. Quality VTE Prophylaxis VTE prophylaxis: mechanical ordered The patient has been admitted under observation status. Hospitalist MIPS Advance Care Plan I have confirmed that the patient's Advanced Care Plan is present, code status is documented, or surrogate decision maker is listed in patient medical record.: Yes Medication Reconciliation I have utilized all available resources to obtain, update and review the patients current medications (includes all prescriptions, OTC, herbals, cannabis, and nutritional supplements).: Yes
[2024-10-04 17:51] LABS: HAV RESULT Negative (Negative); Hepatitis B Core IgM Result Negative (Negative); Hepatitis B Surface Antigen Negative (Negative)
[2024-10-04 17:59] LABS: Hepatitis C Virus Antibody Negative (Negative)
--- NOTE | 2024-10-04 18:07 | ADMGEN ---
This patient, Shanna Awad, was admitted to IMU Room 212-01 at approximately 1800. Patient/family oriented to hospital policies and general routines including ID bracelet, bed and alarms, visiting hours, pain management, procedures, bathroom and other care routines, personal items, smoking policy, room service/diet, and visiting hours. Information on how to activate the Rapid Response Team has been discussed. Patient/Family are encouraged to report perceived risks to care and to ask questions if they do not understand what they are told or what they should do.
[2024-10-04] MEDS: ACETAMINOPHEN 325 MG TABLET 650 MG PO (18:47)
[2024-10-04 19:50] LABS: Troponin I 0.019 ng/mL (0.000-0.034)
[2024-10-04] MEDS: amLODIPine BESYLATE 2.5 MG TABLET PO (21:21)
--- NOTE | 2024-10-04 23:02 | PCRCNOTE ---
Apnea Link unable to be completed tonight due to equipment is unavailable.
[2024-10-05] VITALS (17 sets, daily range): BP systolic 134–177; BP diastolic 80–103; PULSE 66–109; RESP 12–18; TEMP 36.5–37.2; O2SAT 97–100
[2024-10-05 05:26] LABS: Alanine Aminotransferase 119 U/L (6-35); Albumin Level 4.7 g/dL (3.5-5.1); Alkaline Phosphatase 68 U/L (38-126); Anion Gap 12 mmol/L (4-12); Aspartate Amino Transferase 99 U/L (14-36); Bilirubin,Total 0.7 mg/dL (0.2-1.3); Blood Urea Nitrogen 13 mg/dL (7-17); Calcium 9.5 mg/dL (8.4-10.2); Carbon Dioxide 31 mmol/L (22-30); Chloride 96 mmol/L (98-107); Cholesterol 242 mg/dL (0-200); Estimated CRCL calculation 64 ml/min; Estimated Glomerular Filt Rate > 60; Glucose 103 mg/dL (65-110); HDL Direct 55 mg/dL; Potassium 3.4 mmol/L (3.4-5.0); Sodium 139 mmol/L (137-145); Triglycerides 173 mg/dL (<150)
[2024-10-05 05:37] LABS: LDL Cholesterol Direct 125 mg/dL
[2024-10-05] MEDS: ACETAMINOPHEN 325 MG TABLET 650 MG PO ×2 (08:08→19:56)
[2024-10-05] MEDS: amLODIPine BESYLATE 5 MG TABLET PO (08:08)
[2024-10-05] MEDS: lisinopriL 5 MG TABLET PO (14:07)
[2024-10-05] MEDS: hydroCHLOROthiazide 12.5 MG CAPSULE PO (14:07)
--- NOTE | 2024-10-05 15:07 | P.PNIM_ITS ---
Progress Note: A&P Assessment and Plan (1) Hypertensive urgency: Code(s): I16.0 - Hypertensive urgency Status: Acute (2) Hypokalemia: Code(s): E87.6 - Hypokalemia Status: Acute (3) Elevated LFTs: Code(s): R79.89 - Other specified abnormal findings of blood chemistry Status: Acute (4) Suspected sleep apnea: Code(s): R29.818 - Other symptoms and signs involving the nervous system Status: Acute (5) Epilepsy: Code(s): G40.909 - Epilepsy, unspecified, not intractable, without status epilepticus Status: Acute Plan Hypertensive urgency Blood pressure still elevated Continue Amlodipine started on Lisinopril and HCTZ monitor Hypokalemia improvign K 3.4 today Epilepsy Continue home medications. suspected sleep apnea Followed PCP outpatient for sleep study. DVT prophylaxis on Sq Lovenox possible discharge tomorrow Subjective Date/time seen: 10/05/24 15:07 Interval history: comfortable at bedside BP still elevated added Lisinopril and HCTZ Review of Systems Review of Systems: 12 systems were reviewed and are negativ e except for as per HPI. Exam Narrative: General: Nontoxic-appearing female sitting up in bed in no acute distress. Weight: 88.1 kg. BMI: 31.3. HEENT: PERRL, EOMI. Sclera anicteric. Oral mucosa moist. Oropharynx clear. Neck: Supple. Respiratory: Lungs are clear to auscultation bilaterally. Cardiovascular: Regular rate and rhythm with S1-S2. Gastrointestinal: Abdomen is soft, nontender, and nondistended with positive bowel sounds. Skin: Warm and dry. No rash or lesions on limited exam. Extremities: No cyanosis, clubbing, or edema. Radial and pedal pulses intact. No edema. Neurological: Alert. Cranial nerves 2-12 are grossly intact. No gross focal deficits to casual conversation. Psychiatric: Pleasant and cooperative with normal mood and affect. Judgment and insight intact. Objective Data Vital Signs Vital Signs: Vital Signs - 24 hr 10/04/24 15:15 10/04/24 16:02 10/04/24 16:21 Temperature Pulse Rate 70 77 78 Respiratory Rate 17 24 H 19 Blood Pressure Pulse Oximetry 100 100 Oxygen Delivery 10/04/24 16:57 10/04/24 17:06 10/04/24 17:41 Temperature 98.1 F Pulse Rate 73 74 71 Respiratory Rate 23 H 14 13 Blood Pressure 178/115 H 192/109 H Pulse Oximetry 96 100 Oxygen Delivery 10/04/24 18:19 10/04/24 20:00 10/04/24 20:04 Temperature 98.2 F 98.6 F Pulse Rate 72 94 69 Respiratory Rate 16 18 Blood Pressure 175/98 H 152/79 H Pulse Oximetry 100 100 Oxygen Delivery 10/04/24 23:47 10/05/24 00:00 10/05/24 00:00 Temperature 98.6 F Pulse Rate 77 76 77 Respiratory Rate 18 18 Blood Pressure 147/94 H Pulse Oximetry 100 100 Oxygen Delivery Room Air 10/05/24 03:44 10/05/24 03:46 10/05/24 04:53 Temperature 98.9 F Pulse Rate 74 76 69 Respiratory Rate 18 18 Blood Pressure 149/100 H Pulse Oximetry 100 100 Oxygen Delivery Room Air 10/05/24 08:00 10/05/24 08:13 10/05/24 12:00 Temperature 98.1 F 98.5 F Pulse Rate 66 109 H 74 Respiratory Rate 16 12 Blood Pressure 177/103 H 174/100 H Pulse Oximetry 100 100 Oxygen Delivery 10/05/24 12:30 10/05/24 14:00 Temperature Pulse Rate 79 74 Respiratory Rate Blood Pressure Pulse Oximetry Oxygen Delivery Intake/Output Intake/Output: Intake & Output 10/02/24 10/03/24 10/04/24 10/05/24 23:59 23:59 23:59 23:59 Intake Total 720 Output Total 300 Balance -300 720 Meds/Results Medications: Active Medications Generic Name Dose Route Start Last Admin Trade Name Freq PRN Reason Stop Dose Admin Acetaminophen 650 mg 10/04/24 18:33 10/05/24 08:08 Acetaminophen 325 Mg Tablet PO 650 mg Q6H PRN Administration Mild Pain (1-3) or Fever Amlodipine Besylate 5 mg 10/05/24 09:00 10/05/24 08:08 Amlodipine Besylate 5 Mg Tablet PO 5 mg DAILY LISE Administration Hydrochlorothiazide 12.5 mg 10/05/24 09:40 10/05/24 14:07 Hydrochlorothiazide 12.5 Mg Capsule PO 12.5 mg QAM LISE Administration Lisinopril 5 mg 10/05/24 09:40 10/05/24 14:07 Lisinopril 5 Mg Tablet PO 5 mg QAM LISE Administration Perflutren Lipid Microsphere 0 ml 10/04/24 16:10 Perflutren Lipid Microspheres 1.5 Ml Vial Diluted To 10 Ml Total Volume IV PUSH 10/07/24 16:10 ONCE PRN adequate visualization Protocol Radiology Results: ITS Impressions Chest X-Ray 10/04/24 13:30 IMPRESSION: 1. No acute cardiopulmonary disease. Abdomen Ultrasound 10/05/24 10:17 Impression: Status post cholecystectomy, otherwise unremarkable exam. Labs Labs: Laboratory Results - last 24 hr 10/04/24 10/04/24 10/04/24 13:37 16:22 19:12 Sodium 138 Potassium 3.3 L Chloride 97 L Carbon Dioxide 33 H Anion Gap 8 BUN 13 Creatinine 0.94 Estim Creat Clear Calc 80 Estimated GFR > 60 Glucose 84 Calcium 9.6 Magnesium 1.7 Total Bilirubin 0.5 AST 195 H ALT 138 H Alkaline Phosphatase 76 Troponin I 0.017 0.017 0.019 NT-Pro-B Natriuret Pep 728 H Total Protein 8.0 Albumin 4.7 Triglycerides Cholesterol LDL Cholesterol Direct HDL Direct Lipase 42 TSH (Reflex) 2.210 Hepatitis A IgM Ab Negative Hep Bs Antigen Negative Hep B Core IgM Ab Negative Hepatitis C Ab Screen Negative 10/05/24 05:05 Sodium 139 Potassium 3.4 Chloride 96 L Carbon Dioxide 31 H Anion Gap 12 BUN 13 Creatinine 1.17 H Estim Creat Clear Calc 64 Estimated GFR > 60 Glucose 103 Calcium 9.5 Magnesium Total Bilirubin 0.7 AST 99 H ALT 119 H Alkaline Phosphatase 68 Troponin I NT-Pro-B Natriuret Pep Total Protein 8.0 Albumin 4.7 Triglycerides 173 H Cholesterol 242 H LDL Cholesterol Direct 125 HDL Direct 55 Lipase TSH (Reflex) Hepatitis A IgM Ab Hep Bs Antigen Hep B Core IgM Ab Hepatitis C Ab Screen Quality VTE Prophylaxis VTE prophylaxis: mechanical ordered
--- NOTE | 2024-10-05 16:10 | ECHO_ITS ---
Patient Info Name: Shanna Awad Age: 38 years : 1985 Gender: Female Ht: 66 in Wt: 194 lbs BSA: 2.05 m2 HR: 73 bpm BP: 174 / 100 mmHg Heart Rhythm: Sinus Rhythm Technical Quality: Good Exam Date: 10/05/2024 2:40 PM Exam Location: Echo Lab Patient Status: Outpatient Admit Date: 10/04/2024 Staff Ordering Physician: Dora Cox PA-C [employer] Logistics Analyst: Perla Ruff RDCS Attending Provider: Mary Lugo MD Referring Physician: Kenny STRAUSS; Exam Type: CA echo doppler color flow Study Info Indications - severe htn R07.9 - Chest pain, unspecified Complete two-dimensional, color flow and Doppler transthoracic echocardiogram is performed. Summary 1. Complete two-dimensional, color flow and Doppler transthoracic echocardiogram is performed. 2. Severe concentric left ventricular hypertrophy with normal systolic function and grade 2 diastolic noncompliance. 3. Moderate left atrial enlargement. 4. Trivial aortic regurgitation. Left Ventricle Left ventricular chamber dimension is normal. Left ventricular systolic function is normal, estimated at 50-55%. There is severe concentric increased left ventricular wall thickness. The left ventricular diastolic function is grade II diastolic dysfunction. Right Ventricle Right ventricular chamber dimension is normal. Left Atria Left atrial chamber dimension is mildly enlarged. Right Atria Right atrial chamber dimension is normal. Aortic Valve The aortic valve is normal. There is trace aortic valve regurgitation. Pulmonic Valve The pulmonic valve is normal. Mitral Valve The mitral valve has normal leaflets. Tricuspid Valve The tricuspid valve leaflets are normal. Pericardium/Pleural The pericardium appears normal. Aorta The aortic root size at the sinus of Valsalva is normal. Left Ventricular Outflow Tract Name Value Normal LVOT 2D LVOT Diameter 2.0 cm LVOT Doppler LVOT Peak Velocity 120 cm/s LVOT Peak Gradient 6 mmHg LVOT Mean Gradient 3 mmHg LVOT VTI 16 cm LVOT VTI/AV VTI Ratio 0.7 LVOT Stroke Volume 53 ml LVOT CO 4.2 l/min LVOT CI 2.0 l/min/m2 Pulmonic Valve Name Value Normal RVOT Doppler RVOT Peak Gradient 2 mmHg PV Doppler PV Peak Velocity 88 cm/s PV Peak Gradient 3 mmHg Mitral Valve Name Value Normal MV Doppler MV Decel Bennett 377 cm/s2 MV PHT 65 ms MV Area (PHT) 3.4 cm2 4.0-5.0 MV Diastolic Function MV E Peak Velocity 84 cm/s MV A Peak Velocity 88 cm/s MV E/A 1.0 MV Decel Time 223 ms MV Annular TDI MV Septal e' Velocity 4.0 cm/s >=8.0 MV E/e' (Septal) 21.1 <=8.0 MV Lateral e' Velocity 3.9 cm/s >=10.0 MV E/e' (Lateral) 21.9 <=8.0 MV e' Average 3.92 MV E/e' (Average) 21.5 Tricuspid Valve Name Value Normal TV Regurgitation Doppler TR Peak Velocity 192 cm/s TR Peak Gradient 9 mmHg Estimated PAP/RSVP RA Pressure 10 mmHg <=5 PA Systolic Pressure 25 mmHg <36 RV Systolic Pressure 25 mmHg <36 TV Annular TDI TV Lateral Brinda s' Velocity 12.0 cm/s 9.5-18.7 Aorta Name Value Normal Ascending Aorta Ao Root Diameter (MM) 3.1 cm Ao Root Diam Index (MM) 1.5 cm/m2 Ao [place] Diameter 2.5 cm 2.3-2.9 Aortic Valve Name Value Normal AV Doppler AV Peak Velocity 174 cm/s AV Peak Gradient 12 mmHg AV Mean Gradient 5 mmHg AV VTI 25 cm AV Area (Cont Eq VTI) 2.1 cm2 >=3.0 AV Area (Cont Eq Colin) 2.3 cm2 AV V1/V2 Ratio 0.69 AV Regurgitation 2D LVOT Area 3.3 cm2 AV Regurgitation Doppler AR Decel Time 1,541 ms AR Decel Bennett 333 cm/s2 AR PHT 447 ms Ventricles Name Value Normal LV Dimensions 2D/MM IVS Diastolic Thickness (2D) 1.5 cm 0.6-1.0 LVID Diastole (2D) 5.1 cm 3.8-5.2 LVIW Diastolic Thickness (2D) 1.5 cm 0.6-0.9 LVID Systole (2D) 3.7 cm 2.2-3.5 LVOT Diameter 2.0 cm LV Mass (2D Cubed) 337.84 g 67.00-162.00 LV Mass Index (2D Cubed) 165 g/m2 43-95 Relative Wall Thickness (2D) 0.58 LV Fractional Shortening/Ejection Fraction 2D/MM LV Fractional Shortening (2D) 29 % 27-45 LV EF (2D Teicholz) 55 % 54-74 LV Diastolic Volume (4C MOD) 90 ml LV EF (4C MOD) 58 % LV Diastolic Volume (2C MOD) 84 ml LV EF (2C MOD) 57 % LV Diastolic Volume (BP MOD) 87 ml 46-106 LV Diastolic Volume Index (BP MOD) 43 ml/m2 29-61 LV Systolic Volume (BP MOD) 38 ml 14-42 LV Systolic Volume Index (BP MOD) 18 ml/m2 8-24 LV EF (BP MOD) 57 % 54-74 LV Diastolic Length (4C) 8.1 cm LV Systolic Length (4C) 7.0 cm LV Stroke Volume (4C MOD) 52 ml Atria Name Value Normal LA Dimensions LA Dimension (MM) 4.0 cm 2.7-3.8 LA Volume (4C A-L) 45 ml LA Volume (BP A-L) 48 ml RA Dimensions RA Area (4C) 15.0 cm2 <=18.0 Report Signatures
[2024-10-05] MEDS: carvediloL 12.5 MG TABLET PO (19:56)
[2024-10-06] VITALS (7 sets, daily range): BP systolic 127–171; BP diastolic 76–96; PULSE 63–77; RESP 18; TEMP 36.5; O2SAT 96–100
[2024-10-06 06:40] LABS: Basophils Absolute Auto 0.1 K/mm3 (0.0-0.1); Basophils Percent Auto 1.7 % (0.2-1.2); Eosinophils Absolute Auto 0.2 K/mm3 (0-0.3); Eosinophils Percent Auto 4.5 % (0-4.4); Hematocrit 45.2 % (37.0-47.0); Hemoglobin 14.8 g/dL (12.0-15.0); Lymphocytes Absolute Auto 2.24 K/mm3 (0.9-3.2); Lymphocytes Percent Auto 48.1 % (18.3-44.2); Mean Corpuscular HGB Conc 32.7 g/dl (32-36); Mean Corpuscular Hemoglobin 26.7 pg (26-34); Mean Corpuscular Volume 81.6 fl (80-100); Mean Platelet Volume 10.1 fl (7.4-10.4); Monocytes Absolute Auto 0.4 K/mm3 (0.1-0.6); Neutrophils Absolute Auto 1.7 K/mm3 (1.3-6.7); Neutrophils Percent Auto 36.7 % (45.5-73.1); Platelet Count Result 235 k/mm3 (150-375); Red Blood Count 5.54 M/mm3 (4.2-5.4); Red Cell Distribution Width 14.6 % (11.5-14.5); White Blood Count 4.7 K/mm3 (4.5-10.0)
[2024-10-06 06:50] LABS: Alanine Aminotransferase 71 U/L (6-35); Albumin Level 4.7 g/dL (3.5-5.1); Alkaline Phosphatase 65 U/L (38-126); Anion Gap 7 mmol/L (4-12); Aspartate Amino Transferase 44 U/L (14-36); Bilirubin,Total 0.6 mg/dL (0.2-1.3); Blood Urea Nitrogen 15 mg/dL (7-17); Calcium 9.9 mg/dL (8.4-10.2); Carbon Dioxide 32 mmol/L (22-30); Chloride 98 mmol/L (98-107); Estimated CRCL calculation 69 ml/min; Estimated Glomerular Filt Rate > 60; Glucose 94 mg/dL (65-110); Magnesium 1.8 mg/dL (1.6-2.3); Potassium 3.5 mmol/L (3.4-5.0); Sodium 137 mmol/L (137-145)
[2024-10-06] MEDS: amLODIPine BESYLATE 5 MG TABLET PO (09:03)
[2024-10-06] MEDS: carvediloL 12.5 MG TABLET PO (09:03)
[2024-10-06] MEDS: hydroCHLOROthiazide 12.5 MG CAPSULE PO (09:03)
[2024-10-06] MEDS: lisinopriL 5 MG TABLET PO (09:04)
[2024-10-06] MEDS: ENOXAPARIN 40 MG/0.4 ML SYRINGE SUB-Q (09:08)
--- NOTE | 2024-10-06 12:21 | PM.DS ---
DS: Admitting Diagnosis Discharge Date 10/06/24 Admitting Diagnosis High blood pressure DS: Discharge Diagnosis Discharge Diagnosis (1) Hypertensive urgency: Code(s): I16.0 - Hypertensive urgency Status: Acute DS: Summary Hospital Course Hospital Course: This is a very pleasant 38-year-old female with history of migraines, epilepsy, hypertension, and asthma who presented to the emergency department via private vehicle for evaluation of high blood pressure. The patient provides the following history. She was on medication for epilepsy and hypertension but has been off of them for a couple of years ago. At times she will monitor her blood pressure while at [employer] or [employer] and reports that is a bit elevated but not significantly so. Yesterday at work she noticed that her left arm was swollen and painful however she currently has tennis elbow in his wearing a brace. She went to the health office at work and at that time they found her blood pressure to be well over 200 and she was encouraged to go to the emergency department. CT of the chest, abdomen, and pelvis did not show any acute findings and her labs were unremarkable. She was given a prescription for carvedilol 12.5 mg q.12 hours which she he took previously. She had a follow-up appointment with her new primary care provider today and her blood pressure was 245 systolic and she was referred back to the ED. She is no longer having pain in her left arm but does have a low-grade headache. She denies vertigo, visual changes, chest pain, shortness of breath, nausea, vomiting, hematuria, orthopnea, and edema. No known history of cardiac or renal disease. No history of sleep apnea but she does endorse occasional paroxysmal nocturnal dyspnea. In the ED: Blood pressure was 225/123 on arrival to ED. the remainder of her vital signs were normal. Labs were significant for a WBC count of 3.9, potassium 3.3, chloride 97, carbon dioxide 33, AST 195, ALT 138, proBNP 728, troponin 0.017. Urinalysis was unremarkable. Chest x-ray showed no acute cardiopulmonary disease. EKG showed sinus rhythm with first-degree AV block, left axis deviation, possible left ventricular hypertrophy as well as nonspecific T-wave abnormalities. She received hydralazine 10 mg IV x1 with improvement in her blood pressure to 188/89. She is being admitted in this setting for closer monitoring and to reinitiate antihypertensives. Patient was started on Amlodipine, however, she needed addition of Lisinopril, HCTZ adn Coreg. Blood pressure improved markedly and was discharged today on Lisinopril 5mg, Amlodipine 5mg, HCTZ 12.5mg and Coreg 12.5gm bid. Discussed with her and she will follow up with PCP on Friday with BP logs for further medications adjustment. F/uw ith PCP in 3-5 days Time Spent with Patient Time attestation: Total time spent providing and/or coordinating discharge services: DS: Data Data Completed and Pending Labs on day of discharge: Labs from last 24 hours 10/06/24 06:31 WBC 4.7 RBC 5.54 H Hgb 14.8 Hct 45.2 MCV 81.6 MCH 26.7 MCHC 32.7 RDW 14.6 H Plt Count 235 MPV 10.1 Immature Gran % (Auto) 0.0 Neut % (Auto) 36.7 L Lymph % (Auto) 48.1 H [place] % (Auto) 9.0 H Eos % (Auto) 4.5 H Baso % (Auto) 1.7 H Lymph # (Auto) 2.24 [place] # (Auto) 0.4 Eos # (Auto) 0.2 Baso # (Auto) 0.1 Abs Immat Gran (auto) 0.00 Absolute Neuts (auto) 1.7 Absolute Nucleated RBC 0.000 Nucleated RBC % 0.0 Sodium 137 Potassium 3.5 Chloride 98 Carbon Dioxide 32 H Anion Gap 7 BUN 15 Creatinine 1.06 H Estim Creat Clear Calc 69 Estimated GFR > 60 Glucose 94 Calcium 9.9 Magnesium 1.8 Total Bilirubin 0.6 AST 44 H ALT 71 H Alkaline Phosphatase 65 Total Protein 8.0 Albumin 4.7 Discharge Plan Discharge Attending physician on discharge: Marlin Davila Discharging Clinician: Marlin Davila Anticipated Discharge Date/Time: 10/06/24 12:17 Patient Disposition: Home, Self-Care Activity: as tolerated Diet: regular Patient Instructions: Antibiotic Form Patient Language: Japanese Stand Alone Forms: General Discharge Information Follow-up/Referrals: Jeffery Barahona MD [Primary Care Provider] - (Follow-up PCP 3-5 days.) Discharge Medications: New amlodipine [Norvasc] 5 mg Tablet 5 mg PO DAILY 30 Days Qty: 30 0RF lisinopril 5 mg Tablet 5 mg PO QAM 30 Days Qty: 30 0RF hydrochlorothiazide 12.5 mg Capsule 12.5 mg PO QAM 30 Days Qty: 30 0RF Continued carvedilol [Coreg] 12.5 mg tablet 12.5 mg PO Q12H 30 Days Qty: 60 0RF Rx Instructions: must administer with a meal/food Date of admission: 10/05/24 15:50 Primary Care Provider: Jeffery Barahona Admitting Provider: Mary Lugo Attending physician on admission: Mary Lugo Condition: Improved
--- OUTSIDE RECORDS SUMMARY | 2024-10-07 13:10 | XMS_ITS | Referral Summary ---
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
--- OUTSIDE RECORDS SUMMARY | 2024-10-07 13:10 | XMS_ITS | Clinical Summary ---
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
== END 2024-10-06 12:57 | disposition home or self-care (01) | DRG 305 ==
LOC: ANHED 13:15 → ANHIMU 17:18
PROVIDERS: Physician Assistant; Admitting Provider Hospitalist; Emergency Provider Emergency Medicine; PCP Emergency Medicine; Visit Provider Internal Medicine
DX: I16.0 Hypertensive urgency (principal); I10 Essential (primary) hypertension; J45.909 Unspecified asthma, uncomplicated; E87.6 Hypokalemia; R79.89 Other specified abnormal findings of blood chemistry; G40.909 Epilepsy, unspecified, not intractable, without status epilepticus; G43.909 Migraine, unspecified, not intractable, without status migrainosus; G47.30 Sleep apnea, unspecified; Z72.0 Tobacco use
CPT/HCPCS: 36415; 71045; 76705; 80053; 80061; 80074; 81003; 83690; 83735; 83880; 84443; 84484; 85025; 85610; 85730; 93005; 93306; 94762; 96374; 96375; 99285; A9270; G0378; J0360; J1650; J2405

== ENCOUNTER 2025-06-23 14:41 | Outpatient (CLI) | payer BC, SELFPAY ==
--- NOTE | ~2025-06-23 | XR_ITS ---
EXAMINATION: XR hip RT min 2V, 06/23/2025 15:04 CDT HISTORY: Right hip osteonecrosis COMPARISON: No comparisons available. Findings: No acute fracture or malalignment. No significant degenerative changes. Soft tissues unremarkable. Impression: No acute fracture or malalignment. Reviewed, dictated and finalized at location P. Impression: No acute fracture or malalignment.
== END 2025-06-23 14:42 | disposition home or self-care (01) ==
LOC: MICIMG 14:44
PROVIDERS: PCP Emergency Medicine; Visit Provider Emergency Medicine
DX: M25.551 Pain in right hip (principal)
CPT/HCPCS: 73502

== ENCOUNTER 2025-08-11 17:05 | Emergency (ER) | payer BC, SELFPAY ==
[2025-08-11] VITALS (12 sets, daily range): BP systolic 90–128; BP diastolic 59–89; PULSE 56–77; RESP 16–18; TEMP 36.9; O2SAT 97–100
--- NOTE | 2025-08-11 17:25 | ED.NAVMDI ---
HPI - Nausea/Vomiting/Diarrhea General Chief complaint: Nausea/Vomiting/Diarrhea Stated complaint: nausea vomiting diarrhea Time Seen by Provider: 08/11/25 17:07 Source: patient Mode of arrival: EMS Limitations: no limitations History of Present Illness HPI Narrative: 39-year-old female that presents to the emergency department for nausea, vomiting and diarrhea. Ongoing throughout the day. Reports associated body aches. Reports she feels like she has flu. Reports she felt lightheaded after having a bowel movement today which prompted her to be seen. Denies abdominal pain, dysuria. Related Data Allergies Allergy/AdvReac Type Severity Reaction Status Date / Time codeine Allergy Rash Verified 08/11/25 17:16 Penicillins Allergy Rash Verified 08/11/25 17:16 Review of Systems Review of Systems: All systems reviewed & are unremarkable except as noted in HPI and below PMFSH Past Medical History Medical History (Updated 08/11/25 @ 19:58 by Maria Dle Carmen Hernandez PA-C) Hypertension Seizure disorder Exam Narrative: GENERAL: Well-appearing, well-nourished, and in no acute distress. HEAD: Normocephalic, atraumatic. EYES: EOMI. ENT: Nares clear, no rhinorrhea or epistaxis. Mucous membranes moist. Oropharynx without tonsillar hypertrophy exudate or other lesions. CHEST: Clear to auscultation. No respiratory distress. No wheezes rales or rhonchi HEART: Regular rate and rhythm. No murmur heard. Normal peripheral pulses. ABDOMEN: Soft, nontender, nondistended, normal active bowel sounds. EXTREMITIES: Normal range of motion. No edema. SKIN: Warm, dry, no rash. NEURO: No focal deficits. Alert and oriented x3. PSYCH: Normal mood and affect Course Vital Signs Vital signs: Vital Signs Temperature 98.4 F 08/11/25 17:15 Pulse Rate 74 08/11/25 17:15 Respiratory Rate 18 08/11/25 17:15 Blood Pressure 104/68 08/11/25 17:15 Pulse Oximetry 100 08/11/25 17:15 Temperature 98.4 F 08/11/25 17:15 Pulse Rate 69 08/11/25 18:52 Respiratory Rate 16 08/11/25 18:01 Blood Pressure 90/64 L 08/11/25 18:16 Pulse Oximetry 100 08/11/25 18:52 MDM - Nausea/Vomiting/Diarrhea MDM Narrative Medical decision making narrative: Patient presents the emergency department for nausea, vomiting, diarrhea, body aches. She is afebrile and nontoxic appearing. Her vitals are stable. Cbc without leukocytosis. Metabolic panel with mild hypokalemia, magnesium and potassium were replaced. UA with 21-50 white blood cells, also many squamous epithelial cells. Patient does not have any urinary symptoms. This will be sent for culture. Patient was updated on her workup. Hydrated with IV fluids. Tolerating p.o. challenge. She is to follow up with primary provider. She was given warnings to return to the ER Differential Diagnosis Differential diagnosis: Likely food poisoning, gastroenteritis, drug-induced nausea and vomiting and dehydration Lab Data Attestation: I reviewed the patient's lab results. 08/11/25 17:16 08/11/25 17:16 Labs: Lab Results 08/11/25 08/11/25 08/11/25 Range/Units 17:16 17:38 19:12 WBC 3.4 L (4.5-10.0) K/mm3 RBC 4.89 (4.2-5.4) M/mm3 Hgb 13.4 (12.0-15.0) g/dL Hct 39.7 (37.0-47.0) % MCV 81.2 (80-100) fl MCH 27.4 (26-34) pg MCHC 33.8 (32-36) g/dl RDW 15.2 H (11.5-14.5) % Plt Count 160 (150-375) k/mm3 MPV 9.5 (7.4-10.4) fl Immature Gran % (Auto) 0.3 (0-0.5) % Neut % (Auto) 73.5 H (45.5-73.1) % Lymph % (Auto) 14.4 L (18.3-44.2) % [place] % (Auto) 10.9 H (2.6-8.5) % Eos % (Auto) 0.3 (0-4.4) % Baso % (Auto) 0.6 (0.2-1.2) % Lymph # (Auto) 0.49 L (0.9-3.2) K/mm3 [place] # (Auto) 0.4 (0.1-0.6) K/mm3 Eos # (Auto) 0.0 (0-0.3) K/mm3 Baso # (Auto) 0.0 (0.0-0.1) K/mm3 Abs Immat Gran (auto) 0.01 (0.00-0.031) K/mm3 Absolute Neuts (auto) 2.5 (1.3-6.7) K/mm3 Absolute Nucleated RBC 0.000 (0.0-0.012) K/mm3 Nucleated RBC % 0.0 (0.0-0.2) % Sodium 134 L (137-145) mmol/L Potassium 2.9 L (3.4-5.0) mmol/L Chloride 98 (98-107) mmol/L Carbon Dioxide 28 (22-30) mmol/L Anion Gap 8 (4-12) mmol/L BUN 12 (7-17) mg/dL Creatinine 1.03 H (0.7-1.0) mg/dL Estim Creat Clear Calc Not Reportable Estimated GFR 59 (59 - ) Glucose 99 (65-110) mg/dL Calcium 9.1 (8.4-10.2) mg/dL Magnesium 1.7 (1.6-2.3) mg/dL Total Bilirubin 0.4 (0.2-1.3) mg/dL AST 61 H (14-36) U/L ALT 38 H (6-35) U/L Alkaline Phosphatase 52 (38-126) U/L Total Protein 8.4 H (6.3-8.2) g/dL Albumin 4.8 (3.5-5.1) g/dL Lipase 69 (23-300) U/L Urine Color Dark yellow (Yellow) Urine Appearance Cloudy H (Clear) Urine pH 5.5 (5.0-9.0) Ur Specific Brule 1.042 H (1.001-1.035) Urine Protein 3+ H (Negative) mg/dL Urine Glucose (UA) Negative (Negative) mg/dL Urine Ketones Trace H (Negative) mg/dL Ur Blood (Man) Negative (Negative) Urine Nitrate Negative (Negative) Urine Bilirubin 1+ H (Negative) Urine Urobilinogen 1.0 (<2.0) mg/dL Add Ur Microanalysis Reviewed Leukocyte Esterase Rfl Trace H (Negative) SHELTON/UL Urine RBC 6-10 H (0-2) /hpf Urine WBC 21-50 H (0-3) /hpf Ur Squamous Epith Cells Many H (Few) /hpf Urine Bacteria 4+ H /hpf Urine Casts 11-20 Hyaline Casts Present (None) /lpf Urine Mucus Present /lpf Influenza A (RT-PCR) Negative (Negative) Influenza B (RT-PCR) Negative (Negative) SARS-CoV-2 RNA (RT-PCR) Negative (Negative) Critical Care Time Critical Care Time Critical Care Time: No Discharge Plan Discharge Clinical Impression: Acute viral syndrome, Hypokalemia Nausea and vomiting Qualifiers: Vomiting type: unspecified Qualified Code(s): R11.2 - Nausea with vomiting, unspecified Patient Disposition: Home Condition: Improved Instructions: Hypokalemia (ED), Gastroenteritis (ED), Acute Nausea and Vomiting (ED) Additional Instructions: Return to the ER if you experience fever, abdominal pain with nausea and vomiting, you are unable to keep down liquids or solids, pain or burning with urination, blood in the urine or any other symptoms that are concerning to you Small, frequent meals. [place] diet. Remain well hydrated. Ondansetron as needed for nausea Follow up with your primary care doctor Patient Language: Greek Prescriptions: New ondansetron 4 mg tablet,disintegrating 4 mg PO Q6H PRN (Reason: nausea and vomiting) Qty: 10 0RF Follow-up/Referrals: Jeffery Barahona MD [Primary Care Provider, [facility]]
[2025-08-11 17:28] LABS: Hematocrit 39.7 % (37.0-47.0); Hemoglobin 13.4 g/dL (12.0-15.0); Immature Granulocyte Percent A 0.3 % (0-0.5); Lymphocytes Absolute Auto 0.49 K/mm3 (0.9-3.2); Mean Corpuscular HGB Conc 33.8 g/dl (32-36); Mean Corpuscular Hemoglobin 27.4 pg (26-34); Mean Corpuscular Volume 81.2 fl (80-100); Nucleated Red Blood Cells Absolute Auto 0.000 K/mm3 (0.0-0.012); Nucleated Red Blood Cells Perc 0.0 % (0.0-0.2); Platelet Count Result 160 k/mm3 (150-375); Red Blood Count 4.89 M/mm3 (4.2-5.4); White Blood Count 3.4 K/mm3 (4.5-10.0)
[2025-08-11 17:38] LABS: Alanine Aminotransferase 38 U/L (6-35); Albumin Level 4.8 g/dL (3.5-5.1); Alkaline Phosphatase 52 U/L (38-126); Anion Gap 8 mmol/L (4-12); Aspartate Amino Transferase 61 U/L (14-36); Bilirubin,Total 0.4 mg/dL (0.2-1.3); Blood Urea Nitrogen 12 mg/dL (7-17); Calcium 9.1 mg/dL (8.4-10.2); Carbon Dioxide 28 mmol/L (22-30); Chloride 98 mmol/L (98-107); Estimated Glomerular Filt Rate 59; Glucose 99 mg/dL (65-110); Lipase 69 U/L (23-300); Potassium 2.9 mmol/L (3.4-5.0); Sodium 134 mmol/L (137-145); Total Protein 8.4 g/dL (6.3-8.2)
[2025-08-11] MEDS: LACTATED RINGERS 1,000 ML 999 ML IV CONT (17:45)
[2025-08-11 17:54] LABS: Magnesium 1.7 mg/dL (1.6-2.3)
[2025-08-11 18:18] LABS: Influenza A QL RT-PCR Negative (Negative); Influenza B QL RT-PCR Negative (Negative); SARS-CoV-2 RNA PCR Negative (Negative)
[2025-08-11] MEDS: ONDANSETRON INJ 4 MG/2 ML VIAL IV PUSH (18:45)
[2025-08-11] MEDS: FAMOTIDINE 20 MG/2 ML VIAL IV PUSH (18:45)
[2025-08-11] MEDS: MAGNESIUM SULF 2 GM/WATER 50ML 2 GM/50 ML BAG IVPB (18:50)
[2025-08-11] MEDS: POTASSIUM CHLORIDE 20 MEQ ER TABLET 40 MEQ PO (19:34)
[2025-08-11 19:40] LABS: Add Urine Microscopic? YES; Appearance Urine Cloudy (Clear); Glucose Urine UA Negative (Negative); Leukocyte Esterase Ur Trace LEU/UL (Negative); Need Manual Microscopic Reviewed; Nitrate Urine Negative (Negative); Specific Grav Ur 1.042 (1.001-1.035)
== END 2025-08-11 21:06 | disposition home or self-care (01) ==
PROVIDERS: Emergency Provider Physician Assistant; PCP Emergency Medicine
DX: B34.9 Viral infection, unspecified (principal); E87.6 Hypokalemia; Z20.822 Contact with and (suspected) exposure to COVID-19; G40.909 Epilepsy, unspecified, not intractable, without status epilepticus; I10 Essential (primary) hypertension
CPT/HCPCS: 36415; 80053; 81001; 83690; 83735; 85025; 87636; 96365; 96375; 99284; A9270; J2405; J3475; J7120

== ENCOUNTER 2025-08-14 14:30 | Emergency (ER) | payer BC, SELFPAY ==
[2025-08-14 14:35] VITALS: BP 111/58; PULSE 76; RESP 18; TEMP 37; O2SAT 100
--- NOTE | 2025-08-14 15:36 | PC.NURSE ---
Patient has been taking zofran ODT with no relief
--- OUTSIDE RECORDS SUMMARY | 2025-08-14 15:42 | XMS_ITS | Clinical Summary ---
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 Gender Identity Not on file Sexual Orientation [...] Health Maintenance Due Date Last Done Comments Breast Cancer Screening-Mammogram 1984 Cervical Cancer Screening 1984 Depression Screening 1984 Hepatitis C Screening 1984 Varicella Vaccines (1 of 2 - 13+ 2-dose series) 1997 DTaP/Tdap/Td Vaccine (1 - Tdap) 11/20/2000 1 Regular Well Visit/Exam 18-64 2002 HPV Vaccines (1 - 3-dose SCD M series) 2011 Influenza Vaccine (#1) 2025 Hepatitis B Screening Completed 11/19/2000 Pneumococcal vaccine <65 Aged Out No longer eligible based on patient's age to complete this topic Insurance [facility] ACCESS CHOICE Care Teams Marketing Executive Relationship Specialty Start Date End Date Francheska Andrea NP PCP - General Nurse Practitioner 04/22/23
--- OUTSIDE RECORDS SUMMARY | 2025-08-14 15:42 | XMS_ITS | Clinical Summary ---
Author Organization [facility] Address [address] [place] [address] Care Team Providers Care Dictating Machine Typist Name Role Phone Jeffery Barahona MD Primary Care Provider [phone] Source Comments [facility],non-owned Affiliates and Associated Physician Practices is amultiple site organization consisting of ambulatory clinics and hospital sitesin [place], [place], [place] and [place]. This disclosure is being madepursuant to the Care Everywhere program and may not contain all information available regarding this patient. Last updated 18.[facility] Allergies Active Allergy Reactions Criticality Noted Date Comments Codeine 01/24/2012 Penicillins Rash Medium 04/05/2025 rash Medications * Be aware that medications may not be up to date on this document. Alwaysverify current medications with the patient. albuterol HFA (PROVENTIL;VENT JEREMY;PROAIR) 108 (90 BASE) MCG/ACT inhaler Inhale 2 Puffs by mouth every 6 hours as needed. Active ibuprofen (MOTRIN) 400 MG tabletIndicatio ns:Headache Take 400-800 mg by mouth every 6 hours as needed for Pain Reasons: Headache Active multivitamin daily (THERAGRAN) tablet Take 1 Tab by mouth once daily 04/18/2015 Active amLODIPine (Norvasc) 5 MG tablet Take 1 (one) tablet by mouth once daily Active chlorthalidone (Hygroton) 25 MG tablet Take 1 (one) tablet by mouth once daily 02/14/2025 Active lacosamide (Vimpat) 50 MG tabletIndicatio ns:Seizures (HCC) Take 1 (one) tablet by mouth 2 times daily 60 tablet 5 04/05/2025 Active Active Problems Problem Noted Date Diagnosed Date Seizures 04/18/2015 Elevated LFTs 04/18/2015 Alcohol abuse 04/18/2015 Family History Relation Name Status Comments Brother Alive healthy Daughter Alive asthma Father Alive HBP Mother Alive seizures,HBP,br ain aneurysm Son Alive asthma Social History Tobacco Use Types Packs/Day Years Used Date Smoking Tobacco: Every Day Cigarettes Smokeless Tobacco: Never Tobacco Cessation:Ready to Q uit: Yes; Counseling Given: Yes Alcohol Use Standard Drinks/Week Comments Yes 0 (1 standard drink = 0.6 oz pur e alcohol) rare Comments Unknown Sex and Gender Information Value Date Recorded Sex Assigned at Not on file Legal Sex Female 6:28 AM MONORAIL CRANE OPERATOR Gender Identity Not on file Sexual Orientation Not on file 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 Not on file Not on file Last Filed Vital Signs Vital Sign Reading Time Taken Comments Blood Pressure 165/114 04/05/2025 8:10 AM CDT Pulse 66 04/05/2025 8:10 AM CDT Temperature 36.7 C (98.1 F) 10/01/2024 1:39 PM MONORAIL CRANE OPERATOR Respiratory Rate 18 10/01/2024 1:39 PM MONORAIL CRANE OPERATOR Oxygen Saturation 99% 04/05/2025 7:58 AM CDT Inhaled Oxygen Concentration - - Weight 88 kg (194 lb) 04/05/2025 7:58 AM CDT Height 165.1 cm (5' 5) 04/16/2015 10:30 PM CDT Body Mass Index 32.28 04/16/2015 10:30 PM CDT Plan of Treatment Health Maintenance Due Date Last Done Comments LIPID TESTING 1984 MAMMOGRAM 1984 HIV SCREENING 1999 DTAP/TDAP/TD VACCINES (1 - Tdap) 2003 HEPATITIS B VACCINE (1 of 3 - 19+ 3-dose series) 2003 PNEUMOCOCCAL VACCINE (1 of 2 - PCV) 2003 Cervical Cancer Screening 2005 PAP SMEAR 2005 HPV VACCINE (1 - 3-dose SCDM series) 2011 PAP with HPV 2014 DEPRESSION SCREENING 09/15/2024 COVID-19 VACCINE (1 - 2024-2 6 season) 2025 INFLUENZA VACCINE (#1) 2025 ZOSTER VACCINE (1 of 2) 2034 HEPATITIS C SCREENING Completed 04/17/2015 HIB VACCINE Aged Out No longer eligi ble based on patient's age to complete this topic MENINGOCOCCAL (Group B) VACC INE SHARED DECISION-MAKING Aged Out No longer eligibl e based on patient's age to complete this topic MENINGOCOCCAL GROUPS A/C/Y/W VACCINE Aged Out No longer eligible b ased on patient's age to complete this topic Procedures Procedure Name Priority Date/Time Associated Diagnosis Comments HEPATITIS SCREEN ACUTE AM Draw 04/17/2015 5:37 AM CDT from Last 3 Months or Most Recently Relevant to Health Maintenance Results * HEPATITIS SCREEN ACUTE (04/17/2015 5:37 AM CDT) HAV Antibody IgM Non Reactive Non Reactive 04/17/2015 7:23 AM CDT [facility] HBsAg Non Reactive Non Reactive 04/17/2015 7:23 AM CDT [facility] HBc Antibody IgM Non Reactive Non Reactive 04/17/2015 7:23 AM CDT [facility] HCV Antibody Screen Non Reactive Non Reactive 04/17/2015 7:23 AM CDT [facility] HCV S/C Ratio 0.04 0.00 - 0.79 04/17/2015 7:23 AM CDT [facility] Comment: S/C ratio <0.80: Non Reactive Blood BLOOD SPECIMEN / Unknown Lab Venipuncture / Unknown 04/17/2015 5:37 AM CDT 04/17/2015 6:12 AM CDT Narrative [facility] - 04/17/2015 7:23 AM CDT Non Reactive - Antibodies to HCV were not detected, result does not exclude early acute HCV infection. us Mayte Persaud WIRE STRETCHER-CLINICAL NURSE MANAGER LAB - CHEMISTRY ORDER TARIK Final Result [facility] [address] [place] [address] from Last 3 Months or Most Recently Relevant to Health Maintenance Insurance [facility] Advance Directives * Full Code (Latest Code Status on File) Date Activated Date Inactivated Comments 04/16/2015 10:23 PM 04/18/2015 12:44 PM Care Teams Dictating Machine Typist Relationship Specialty Start Date End Date Jeffery Barahona MD [address] [facility] [place] [place] [address] [place] [address] PCP - General Family Medicine 04/05/25
--- OUTSIDE RECORDS SUMMARY | 2025-08-14 15:42 | XMS_ITS | Patient Health Record ---
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 Francheska Andrea Primary Care Provider [phone] Allergies Allergen (clinical drug ingredient) Drug/Non Drug Allergy documented on EMR Reaction Allergy Type Onset Date Status Information temporarily unavailable Codeine Unknown Drug Allergy Active Information temporarily unavailable Penicillin Unknown Drug Allergy Active Reason For Referral No Information Medications Medication SIG (Take, Route, Frequency, Duration) Notes Start Date End Date Status Gabapentin 300 MG Capsule Take 1 capsule by mouth once daily; Duration: 90 Active Methocarbamol 750 MG Tablet TAKE 1 TABLET BY MOUTH EVERY 8 HOURS NEEDED; Duration: 30 days needs an appt Active Ondansetron HCl 4 MG Tablet TAKE 1 TABLET BY MOUTH EVERY 8 HOURS NEEDED; Duration: 5 Active ProAir HFA 108 (90 Base) MCG/ACT Aerosol Solution Use 2 puffs as needed Inhalation every 4-6 hours; Duration: 90 days Active Zolpidem Tartrate 5 MG Tablet TAKE 1 TABLET BY MOUTH ONCE DAILY AT BEDTIME; Duration: 30 11/13/2022 Active Losartan Potassium 50 MG Tablet 1 tablet Orally Once a day Active Tamiflu 75 MG Capsule 1 capsule Orally Twice a day; Duration: 5 day(s) 09/04/2022 Active hydroCHLOROthiazide 25 MG Tablet TAKE 1 TABLET BY MOUTH IN THE MORNING; Duration: 90 Active Sertraline HCl 100 MG Tablet Take 1 & 1/2 tablets (150mg) Orally Once a day; Duration: 90 day(s) Active oxyBUTYnin Chloride ER 15 MG Tablet Extended Release 24 Hour 1 tablet Orally Once a day; Duration: 90 days Active Vitamin D (Ergocalciferol) 1.25 MG (30958 UT) Capsule Take 1 capsule by mouth once a week; Duration: 84 Active Triamcinolone Acetonide 0.1 % Ointment 1 application Externally Twice a day; Duration: 10 days 07/05/2022 Active Colestid 1 GM Tablet 1 tab Orally Twice daily; Duration: 90 days Active amLODIPine Besylate 10 MG Tablet 1 tablet Orally Once a day; Duration: 90 days Active dexAMETHasone 6 MG Tablet 1 tablet Orall y Once a day; Duration: 10 days 03/19/2022 Not-Taking/ PRN busPIRone HCl 15 MG Tablet Take 1 tablet by mouth twice daily; Duration: 90 Active traMADol HCl 50 MG Tablet 1 tablet as needed Orally Twice daily; Duration: 30 day(s) 03/14/2023 Active Promethazine-DM 6.25-15 MG/5ML Syrup 5 ml as needed Orally every 6 hrs 03/19/2022 Not-Taking/ PRN Lunesta 3 MG Tablet 1 tab Orally Once a day; Duration: 90 days 12/06/2021 Not-Taking/ PRN Coreg 25 MG Tablet 1 tablet with food Orally Twice a day; Duration: 90 days Active Zithromax Z-Buddy 250 MG Tablet 2 tablet on the first day, then 1 tablet daily for 4 days Orally Once a day; Duration: 5 day(s) use probiotic while on abx 03/19/2022 Not-Taking/ PRN Immunizations Vaccine Route Administration Date Status Comme nts Flulaval Quad IM Intramuscular 07/05/2022 Administered [employer] Adult Covid 2nd Dose IM Intramuscular 07/05/2022 Administered Social History Tobacco Use: Social History Observation Description Date Details (start date - stop date) Current Smoker NA - NA Sex Assigned At : Social History Observation Description Sex Assigned At Female Social History Drugs/Alcohol: Social Info Question Answer Notes DO NOT USE SBIRT 2014 Patient refused/de clined SBIRT screening at this time? No In the past 3 months, how often do you have a drink containing alcohol? Never In the past 12 months, did you smoke pot, use another street drug, or use a prescription painkiller, stimulant, or sedative for a non-medical reason? No The cumulative score is 0 A referral is not needed Comprehensive Health Assessm ent Social Info Question Answer Notes Comprehensive Health Assessment Assistance with drug c ost? No Assistance with food cost? No Any communication needs? No Any High risk behaviors ? No Any Mental health issues? No Any substance abuse ? No Problems understanding meds or dx ? No Tobacco Use: Social Info Question Answer Notes Not to use -Tobacco Use/Smoking Are you a current s moker How often do you smoke cigarettes? every day How many cigarettes a day do you smoke? 5 or less How soon after you wake up do you smoke your first cigarette? within 5 minutes Are you interested in quitting? Ready to quit Problems Problem Type SNOMED Code ICD Code Onset Dates Problem Status W/U Status Risk Notes Problem Information temporarily unavailable Vitamin D deficiency (E55.9) Active confirmed Problem Information temporarily unavailable Migraine (G43.909) Active confirmed Problem Information temporarily unavailable Neuropathy (G62.9) Active confirmed Problem Information temporarily unavailable Smoking (F17.200) Active confirmed Problem Information temporarily unavailable Anxiety disorder, unspecified (F41.9) Active confirmed Problem Information temporarily unavailable Other insomnia (G47.09) Active confirmed Problem Information temporarily unavailable Essential (primary) hypertension (I10) Active confirmed Problem Information temporarily unavailable Enuresis (R32) Active confirmed Problem Information temporarily unavailable Encopresis (R15.9) Active confirmed Problem Information temporarily unavailable Hypoxia, sleep related (G47.34) Active confirmed Plan Of Treatment No Information Insurance Providers Payer Name Payer Address Payer Phone Subscriber Number Group Number Insured Name Patient Relationship to Insured Coverage Start Date Coverage End Date [facility] [place] [address] [place] [phone] [id number] Shanna Awad Self - patient is the insured [facility] Plan Dental [address] [place] [address] [phone] [id number] Shanna Awad Self - patient is the insured Medical (General) History Medical History History ICD Code Essential (primary) hypertension I10 Migraine G43.909 Anxiety F41.1 Depression F32.9 Acute bilateral back pain, unspecified b ack location M54.9 Insomnia G47.00 Cough R05.9 Left sciatic nerve pain M54.32 Hemoperitoneum K66.1 Nightmares F51.5 Thyromegaly E04.9 Neck pain M54.2 Rib pain R07.81 Polydipsia R63.1 Chest pain R07.9 History of seizure disorder Z86.69 Vitamin D deficiency E55.9 Sleep apnea G47.30 Epilepsy G40.909 Microcytic anemia D50.9 Mild intermittent asthma without complic ation J45.20 Surgical History Surgery Date(Month/Year) partial hysterectomy 01-17-21 tubal ligation section cholecystectomy Hospitalization History Reason Date(Month/Year) tonsillitis 2020
[2025-08-14] MEDS: PROMETHAZINE HCL 25 MG/ML AMPUL 12.5 MG IV PUSH (16:21)
[2025-08-14] MEDS: KETOROLAC 30 MG/ML VIAL (*BKC) IV PUSH (16:22)
[2025-08-14] MEDS: SODIUM CHLORIDE 0.9% IV 1,000 ML 999 ML IV CONT (16:22)
[2025-08-14 16:45] VITALS: BP 109/78; PULSE 64; RESP 20; O2SAT 98
--- NOTE | 2025-08-14 16:46 | ED.NAVMDI ---
HPI - Nausea/Vomiting/Diarrhea General Chief complaint: Nausea/Vomiting/Diarrhea Stated complaint: NV, back pain, chills. Time Seen by Provider: 08/14/25 15:24 History of Present Illness HPI Narrative: Patient is a 39-year-old female who presents ER with continued symptoms of nausea vomiting ongoing for last 4 days. Was seen earlier this week and had an unremarkable workup and was diagnosed with a viral syndrome. She continues to have some body aches with intermittent vomiting. She also has subjective fevers and chills. No known sick contacts. No blood in stool or emesis. Related Data Allergies Allergy/AdvReac Type Severity Reaction Status Date / Time codeine Allergy Rash Verified 08/16/25 11:38 Penicillins Allergy Rash Verified 08/16/25 11:38 Review of Systems Review of Systems: All systems reviewed & are unremarkable except as noted in HPI and below Constitutional: Constitutional: Reports no additional constitutional complaints ENT: Reports system reviewed and no additional complaints, except as documented Cardiovascular: Cardiovascular: Reports no additional cardiovascular complaints Respiratory: Respiratory: Reports no additional respiratory complaints Gastrointestinal: Gastrointestinal: Reports no additional gastrointestinal complaints COUNT INCLUDES [facility] Past Medical History Medical History (Updated 08/18/25 @ 00:00 by [facility] Dabia) Hypertension Seizure disorder Epilepsy Migraine Hypertension Surgical History Surgical History History of partial hysterectomy Family History Family History Father Seizure Mother Seizure Mother Brain aneurysm Grandparent Diabetes mellitus Heart disease Social History Social History (System 08/16/25 @ 11:38 by Bridget Gill) Social History: Surrogate medical decision maker: bijan Nazario. Code status: Full code. Smoking status: Current every day smoker Tobacco type: e-cigarettes/vaping Alcohol intake: current Drinks per week: 0 Substance use: never Substance use type: does not use Lack of Transportation: No Lack of Food: Never True Current Housing: I Have Housing Concerned About Future Housing: No Difficulty Paying Gas/Electric Bills: No Difficulty Paying for Meds: No Currently Unemployed: No Education: Associate Degree Difficulty w/ Childcare or Family Care: No Additional living arrangements comments: Lives with aliya and 3 children. Spiritual care concerns: No Exam Narrative: GENERAL: Well-appearing, well-nourished, and in no acute distress. HEAD: Normocephalic, atraumatic. ENT: Mucous membranes moist. CHEST: Clear to auscultation. No respiratory distress. HEART: Regular rate and rhythm. Normal peripheral pulses. ABDOMEN: Soft, nontender, nondistended. EXTREMITIES: Normal range of motion. No edema. SKIN: Warm, dry, no rash. NEURO: Alert and oriented x3. PSYCH: Normal mood and affect. Course Course Emergency Course: Low potassium and replaced with IV 20 mEq an oral 40 mEq. Recheck BMP. TYRONE to Dr. Meyer. Vital Signs Vital signs: Vital Signs Temperature 98.6 F 08/14/25 14:35 Pulse Rate 76 08/14/25 14:35 Respiratory Rate 18 08/14/25 14:35 Blood Pressure 111/58 L 08/14/25 14:35 Pulse Oximetry 100 08/14/25 14:35 Temperature 98.6 F 08/14/25 14:35 Pulse Rate 84 08/14/25 22:06 Respiratory Rate 20 08/14/25 22:06 Blood Pressure 132/82 08/14/25 22:06 Pulse Oximetry 98 08/14/25 22:06 MDM - Nausea/Vomiting/Diarrhea Differential Diagnosis Differential diagnosis: Likely food poisoning, gastroenteritis, dehydration and other (Pyelonephritis, UTI) Lab Data Attestation: I reviewed the patient's lab results. 08/14/25 16:45 08/14/25 20:52 Labs: Lab Results 08/14/25 08/14/25 08/14/25 Range/Units 16:45 19:00 20:52 WBC 2.2 L (4.5-10.0) K/mm3 RBC 4.92 (4.2-5.4) M/mm3 Hgb 13.4 (12.0-15.0) g/dL Hct 40.0 (37.0-47.0) % MCV 81.3 (80-100) fl MCH 27.2 (26-34) pg MCHC 33.5 (32-36) g/dl RDW 14.9 H (11.5-14.5) % Plt Count 63 L D (150-375) k/mm3 MPV 10.8 H (7.4-10.4) fl Immature Gran % (Auto) 0.0 (0-0.5) % Neut % (Auto) 55.6 (45.5-73.1) % Lymph % (Auto) 32.3 (18.3-44.2) % [place] % (Auto) 11.7 H (2.6-8.5) % Eos % (Auto) 0.0 (0-4.4) % Baso % (Auto) 0.4 (0.2-1.2) % Lymph # (Auto) 0.72 L (0.9-3.2) K/mm3 [place] # (Auto) 0.3 (0.1-0.6) K/mm3 Eos # (Auto) 0.0 (0-0.3) K/mm3 Baso # (Auto) 0.0 (0.0-0.1) K/mm3 Abs Immat Gran (auto) 0.00 (0.00-0.031) K/mm3 Absolute Neuts (auto) 1.2 L (1.3-6.7) K/mm3 Absolute Nucleated RBC 0.000 (0.0-0.012) K/mm3 Band Neutrophils % Not Reportable Nucleated RBC % 0.0 (0.0-0.2) % Atypical Lymphocytes Present Platelet Estimate Decreased (Adequate) % Immature Plt Fraction 5.0 (0.9-11.2) % Schistocytes None seen Sodium 135 L 135 L (137-145) mmol/L Potassium 2.5 L* 2.8 L* (3.4-5.0) mmol/L Chloride 94 L 96 L (98-107) mmol/L Carbon Dioxide 35 H 35 H (22-30) mmol/L Anion Gap 6 4 (4-12) mmol/L BUN 19 H 20 H (7-17) mg/dL Creatinine 1.13 H 1.17 H (0.7-1.0) mg/dL Estim Creat Clear Calc 64 62 ml/min Estimated GFR 53 L 51 L (59 - ) Glucose 95 94 (65-110) mg/dL Calcium 8.2 L 7.7 L (8.4-10.2) mg/dL Total Bilirubin 0.6 (0.2-1.3) mg/dL AST 143 H (14-36) U/L ALT 61 H (6-35) U/L Alkaline Phosphatase 59 (38-126) U/L Total Protein 8.0 (6.3-8.2) g/dL Albumin 4.5 (3.5-5.1) g/dL Lipase 101 (23-300) U/L Urine Color Dark yellow (Yellow) Urine Appearance Clear (Clear) Urine pH 5.5 (5.0-9.0) Ur Specific [place] 1.028 (1.001-1.035) Urine Protein 2+ H (Negative) mg/dL Urine Glucose (UA) Negative (Negative) mg/dL Urine Ketones 1+ H (Negative) mg/dL Ur Blood (Man) Negative (Negative) Urine Nitrate Negative (Negative) Urine Bilirubin 1+ H (Negative) Urine Urobilinogen 1.0 (<2.0) mg/dL Add Ur Microanalysis Reviewed Leukocyte Esterase Rfl Negative (Negative) [place]/UL Urine RBC 3-5 H (0-2) /hpf Urine WBC 0-5 (0-3) /hpf Ur Squamous Epith Cells Few (Few) /hpf Urine Bacteria None seen /hpf Urine Casts 11-20 Discharge Plan Discharge Clinical Impression: Hypokalemia, Nausea & vomiting, Acute viral syndrome Patient Disposition: Home Condition: Stable Instructions: Hypokalemia (ED), Acute Nausea and Vomiting (ED), Viral Syndrome (ED) Additional Instructions: Return to the emergency department if you develop severe abdominal pain, severe nausea and vomiting to the point where you are unable to keep down fluids, if you develop chest pain or difficulty breathing, blood in your stool, dizziness or fainting, or if you develop any other new or concerning symptoms as these could be signs of more serious medical illness. Try to stay well hydrated. Do not take hydrochlorothiazide while your vomiting as this may make your potassium lower. Patient Language: Burkinan Prescriptions: New ondansetron 4 mg tablet,disintegrating 4 mg PO Q6H PRN (Reason: nausea and vomiting) Qty: 10 0RF potassium chloride [K-Tab] 20 mEq tablet extended release 20 meq PO BID Qty: 10 0RF omeprazole 20 mg capsule,delayed release(DR/EC) 20 mg PO BID Qty: 20 0RF No Action amlodipine [Norvasc] 5 mg Tablet 5 mg PO DAILY 30 Days Qty: 30 0RF hydrochlorothiazide 12.5 mg Capsule 12.5 mg PO QAM 30 Days Qty: 30 0RF lisinopril 5 mg Tablet 5 mg PO QAM 30 Days Qty: 30 0RF carvedilol [Coreg] 12.5 mg tablet 12.5 mg PO Q12H 30 Days Qty: 60 0RF Rx Instructions: must administer with a meal/food ondansetron 4 mg tablet,disintegrating 4 mg PO Q6H PRN (Reason: nausea and vomiting) Qty: 10 0RF metoclopramide HCl [Reglan] 10 mg tablet 10 mg PO Q6H PRN (Reason: nausea and vomiting) Qty: 14 0RF famotidine 20 mg tablet 20 mg PO DAILY Qty: 30 0RF potassium chloride [K-Tab] 20 mEq tablet extended release 20 meq PO DAILY Qty: 5 0RF Follow-up/Referrals: Jeffery Barahona MD [Primary Care Provider, Family Practice] - 1 Week Stand Alone Forms: Work/School Release IP Time of Disposition: 21:50
[2025-08-14 16:53] LABS: Hematocrit 40.0 % (37.0-47.0); Hemoglobin 13.4 g/dL (12.0-15.0); Immature Granulocyte Percent A 0.0 % (0-0.5); Immature Platelet Fraction Pct 5.0 % (0.9-11.2); Lymphocytes Absolute Auto 0.72 K/mm3 (0.9-3.2); Mean Corpuscular HGB Conc 33.5 g/dl (32-36); Mean Corpuscular Hemoglobin 27.2 pg (26-34); Mean Corpuscular Volume 81.3 fl (80-100); Nucleated Red Blood Cells Absolute Auto 0.000 K/mm3 (0.0-0.012); Nucleated Red Blood Cells Perc 0.0 % (0.0-0.2); Platelet Count Result 63 k/mm3 (150-375); Red Blood Count 4.92 M/mm3 (4.2-5.4); White Blood Count 2.2 K/mm3 (4.5-10.0)
[2025-08-14 17:12] LABS: Schistocytes None Seen
[2025-08-14 17:21] LABS: Alanine Aminotransferase 61 U/L (6-35); Albumin Level 4.5 g/dL (3.5-5.1); Alkaline Phosphatase 59 U/L (38-126); Anion Gap 6 mmol/L (4-12); Aspartate Amino Transferase 143 U/L (14-36); Bilirubin,Total 0.6 mg/dL (0.2-1.3); Blood Urea Nitrogen 19 mg/dL (7-17); Calcium 8.2 mg/dL (8.4-10.2); Carbon Dioxide 35 mmol/L (22-30); Chloride 94 mmol/L (98-107); Estimated CRCL calculation 64 ml/min; Estimated Glomerular Filt Rate 53; Glucose 95 mg/dL (65-110); Lipase 101 U/L (23-300); Potassium 2.5 mmol/L (3.4-5.0); Sodium 135 mmol/L (137-145); Total Protein 8.0 g/dL (6.3-8.2)
[2025-08-14] MEDS: POTASSIUM CHLORIDE 20 MEQ PACKET (FOR LIQUID) 40 MEQ PO ×2 (17:49→21:57)
[2025-08-14] MEDS: KCL 20 MEQ/SW 100 ML 100 ML 50 MEQ IVPB (17:50)
[2025-08-14 19:18] LABS: Add Urine Microscopic? YES; Appearance Urine Clear (Clear); Glucose Urine UA Negative (Negative); Leukocyte Esterase Ur Negative LEU/UL (Negative); Need Manual Microscopic Reviewed; Nitrate Urine Negative (Negative); Specific Grav Ur 1.028 (1.001-1.035)
[2025-08-14 20:53] VITALS: BP 127/91; PULSE 62; RESP 12; O2SAT 99
[2025-08-14 21:19] LABS: Anion Gap 4 mmol/L (4-12); Blood Urea Nitrogen 20 mg/dL (7-17); Calcium 7.7 mg/dL (8.4-10.2); Carbon Dioxide 35 mmol/L (22-30); Chloride 96 mmol/L (98-107); Estimated CRCL calculation 62 ml/min; Estimated Glomerular Filt Rate 51; Glucose 94 mg/dL (65-110); Potassium 2.8 mmol/L (3.4-5.0); Sodium 135 mmol/L (137-145)
[2025-08-14 22:06] VITALS: BP 132/82; PULSE 84; RESP 20; O2SAT 98
== END 2025-08-14 22:07 | disposition home or self-care (01) ==
PROVIDERS: Emergency Provider Emergency Medicine; PCP Emergency Medicine
DX: B34.9 Viral infection, unspecified (principal); E87.6 Hypokalemia; R11.2 Nausea with vomiting, unspecified; I10 Essential (primary) hypertension; G40.909 Epilepsy, unspecified, not intractable, without status epilepticus; F17.290 Nicotine dependence, other tobacco product, uncomplicated; Z90.711 Acquired absence of uterus with remaining cervical stump; Z79.899 Other long term (current) drug therapy
CPT/HCPCS: 36415; 80048; 80053; 81001; 83690; 85025; 85055; 96361; 96365; 96366; 96375; 99284; A9270; J1885; J2550; J3480; J7030

== ENCOUNTER 2025-08-17 11:37 | Emergency (ER) | payer BC, SELFPAY ==
[2025-08-17] VITALS (13 sets, daily range): BP systolic 106–147; BP diastolic 69–98; PULSE 68–88; RESP 18; TEMP 36.7–37.1; O2SAT 95–100
--- NOTE | 2025-08-17 12:06 | ED_ITS ---
HPI - Nausea/Vomiting/Diarrhea General Chief complaint: Nausea/Vomiting/Diarrhea Stated complaint: n/v Time Seen by Provider: 08/17/25 11:42 History of Present Illness HPI Narrative: Patient seen here recently for viral syndrome presents here with nausea, vomiting, diarrhea, no significant abdominal pain, has been unable to keep anything down despite trying the medications she was prescribed. No new symptoms since last time Related Data Allergies Allergy/AdvReac Type Severity Reaction Status Date / Time codeine Allergy Rash Verified 08/16/25 11:38 Penicillins Allergy Rash Verified 08/16/25 11:38 Review of Systems 2 Review of Systems: All systems reviewed & are unremarkable except as noted in HPI and below PMFSH Past Medical History Medical History (Updated 08/17/25 @ 13:47 by Roxy Swanson MD) Hypertension Seizure disorder Epilepsy Migraine Hypertension Surgical History Surgical History History of partial hysterectomy Family History Family History Father Seizure Mother Seizure Mother Brain aneurysm Grandparent Diabetes mellitus Heart disease Social History Social History (System 08/16/25 @ 11:38 by Bridget Gill) Social History: Surrogate medical decision maker: bijan Nazario. Code status: Full code. Smoking status: Current every day smoker Tobacco type: e-cigarettes/vaping Alcohol intake: current Drinks per week: 0 Substance use: never Substance use type: does not use Lack of Transportation: No Lack of Food: Never True Current Housing: I Have Housing Concerned About Future Housing: No Difficulty Paying Gas/Electric Bills: No Difficulty Paying for Meds: No Currently Unemployed: No Education: Associate Degree Difficulty w/ Childcare or Family Care: No Additional living arrangements comments: Lives with aliya and 3 children. Spiritual care concerns: No Exam 2 Narrative: EXAMINATION OF ORGAN SYSTEMS/BODY AREAS: Constitutional: Vital signs per nursing GENERAL: Appears nauseous HEAD: Normal with no signs of head trauma. EYES: EOMI, conjunctiva normal ENT: Hearing grossly intact LUNGS: Nonlabored breathing. HEART: [Regular rate and rhythm] ABD: [Soft], [nontender to palpation] EXT: Normal range of motion SKIN: [No rashes or lesions.] NEURO: [Alert. No gross focal sensory or strength deficits.] PSYCH: Normal affect Course Vital Signs Vital signs: Vital Signs Temperature 98.1 F 08/17/25 11:49 Pulse Rate 88 08/17/25 11:49 Respiratory Rate 18 08/17/25 11:49 Pulse Oximetry 100 08/17/25 11:49 Oxygen Delivery Room Air 08/17/25 11:49 Temperature 98.1 F 08/17/25 11:49 Pulse Rate 76 08/17/25 12:15 Respiratory Rate 18 08/17/25 12:15 Blood Pressure 106/93 H 08/17/25 12:15 Pulse Oximetry 100 08/17/25 12:15 Oxygen Delivery Room Air 08/17/25 11:49 MDM MDM Narrative Medical decision making narrative: Patient presenting with nausea vomiting, unable to keep anything down, no abdominal pain, symptoms similar to when she was here last time. On exam she is throwing up, appears uncomfortable, abdomen soft nontender. After fluids, Reglan, patient feels much better. Tolerating p.o. now. Shared decision-making with patient, since she is feels much better has no abdominal pain, does not want CT at this time, she will follow-up with GI for her elevated liver enzymes, will trial different antiemetic see if it helps better, and return for any further issues. Differential Diagnosis Differential Diagnosis: Electrolyte abnormality, gastritis, gastroenteritis, less likely pancreatitis or cholecystitis or appendicitis without any abdominal pain Lab Data 08/17/25 12:20 08/17/25 12:43 Labs: Lab Results 08/17/25 08/17/25 Range/Units 12:20 12:43 WBC 3.6 L (4.5-10.0) K/mm3 RBC 5.86 H (4.2-5.4) M/mm3 Hgb 15.7 H (12.0-15.0) g/dL Hct 47.3 H (37.0-47.0) % MCV 80.7 (80-100) fl MCH 26.8 (26-34) pg MCHC 33.2 (32-36) g/dl RDW 14.8 H (11.5-14.5) % Plt Count 114 L D (150-375) k/mm3 MPV 10.8 H (7.4-10.4) fl Immature Gran % (Auto) 0.3 (0-0.5) % Neut % (Auto) 35.1 L (45.5-73.1) % Lymph % (Auto) 53.5 H (18.3-44.2) % [place] % (Auto) 7.2 (2.6-8.5) % Eos % (Auto) 2.8 (0-4.4) % Baso % (Auto) 1.1 (0.2-1.2) % Lymph # (Auto) 1.92 (0.9-3.2) K/mm3 [place] # (Auto) 0.3 (0.1-0.6) K/mm3 Eos # (Auto) 0.1 (0-0.3) K/mm3 Baso # (Auto) 0.0 (0.0-0.1) K/mm3 Abs Immat Gran (auto) 0.01 (0.00-0.031) K/mm3 Absolute Neuts (auto) 1.3 (1.3-6.7) K/mm3 Absolute Nucleated RBC 0.000 (0.0-0.012) K/mm3 Band Neutrophils % Not Reportable Nucleated RBC % 0.0 (0.0-0.2) % Atypical Lymphocytes Present Platelet Estimate Decreased (Adequate) % Immature Plt Fraction 7.4 (0.9-11.2) % Ovalocytes 1+ Tevin Cells Occasional Acanthocytes (Spur) Occasional Schistocytes None seen Sodium 140 (137-145) mmol/L Potassium 2.8 L* (3.4-5.0) mmol/L Chloride 100 (98-107) mmol/L Carbon Dioxide 31 H (22-30) mmol/L Anion Gap 9 (4-12) mmol/L BUN 16 (7-17) mg/dL Creatinine 0.92 (0.7-1.0) mg/dL Estim Creat Clear Calc 75 ml/min Estimated GFR > 60 (59 - ) Glucose 105 (65-110) mg/dL Calcium 9.3 (8.4-10.2) mg/dL Total Bilirubin 1.1 (0.2-1.3) mg/dL AST 348 H (14-36) U/L ALT 222 H (6-35) U/L Alkaline Phosphatase 77 (38-126) U/L Total Protein 9.1 H (6.3-8.2) g/dL Albumin 4.8 (3.5-5.1) g/dL Lipase 168 (23-300) U/L Discharge Plan Discharge Clinical Impression: Elevated LFTs, Hypokalemia, Nausea and vomiting Patient Disposition: Home Condition: Stable Instructions: Hypokalemia (ED), Acute Nausea and Vomiting (ED), Transaminitis (ED) Additional Instructions: Try the medications as prescribed, and try your best to keep hydrated, either with Pedialyte or Gatorade or other electrolyte solutions. If you start developing any abdominal pain, if your nausea returns and you cannot keep anything down, please come back to the emergency room. Patient Language: Malaysian Prescriptions: New metoclopramide HCl [Reglan] 10 mg tablet 10 mg PO Q6H PRN (Reason: nausea and vomiting) Qty: 14 0RF famotidine 20 mg tablet 20 mg PO DAILY Qty: 30 0RF potassium chloride [K-Tab] 20 mEq tablet extended release 20 meq PO DAILY Qty: 5 0RF No Action amlodipine [Norvasc] 5 mg Tablet 5 mg PO DAILY 30 Days Qty: 30 0RF hydrochlorothiazide 12.5 mg Capsule 12.5 mg PO QAM 30 Days Qty: 30 0RF lisinopril 5 mg Tablet 5 mg PO QAM 30 Days Qty: 30 0RF carvedilol [Coreg] 12.5 mg tablet 12.5 mg PO Q12H 30 Days Qty: 60 0RF Rx Instructions: must administer with a meal/food ondansetron 4 mg tablet,disintegrating 4 mg PO Q6H PRN (Reason: nausea and vomiting) Qty: 10 0RF ondansetron 4 mg tablet,disintegrating 4 mg PO Q6H PRN (Reason: nausea and vomiting) Qty: 10 0RF potassium chloride [K-Tab] 20 mEq tablet extended release 20 meq PO BID Qty: 10 0RF omeprazole 20 mg capsule,delayed release(DR/EC) 20 mg PO BID Qty: 20 0RF Follow-up/Referrals: Jeffery Barahona MD [Primary Care Provider, Family Practice]
[2025-08-17] MEDS: PROCHLORPERAZINE EDISYLATE 10 MG/2 ML VIAL IV PUSH (12:16)
[2025-08-17 12:29] LABS: Hematocrit 47.3 % (37.0-47.0); Hemoglobin 15.7 g/dL (12.0-15.0); Immature Granulocyte Percent A 0.3 % (0-0.5); Immature Platelet Fraction Pct 7.4 % (0.9-11.2); Lymphocytes Absolute Auto 1.92 K/mm3 (0.9-3.2); Mean Corpuscular HGB Conc 33.2 g/dl (32-36); Mean Corpuscular Hemoglobin 26.8 pg (26-34); Mean Corpuscular Volume 80.7 fl (80-100); Nucleated Red Blood Cells Absolute Auto 0.000 K/mm3 (0.0-0.012); Nucleated Red Blood Cells Perc 0.0 % (0.0-0.2); Platelet Count Result 114 k/mm3 (150-375); Red Blood Count 5.86 M/mm3 (4.2-5.4); White Blood Count 3.6 K/mm3 (4.5-10.0)
--- NOTE | 2025-08-17 12:42 | PC.NURSE ---
Patient very restless on stretcher-reporting I just can't get comfortable-was cold/blankets given-now complaining of being hot. Patient removing monitoring equipment. Family at bedside
[2025-08-17 12:44] LABS: Acanthocytes Occasional; Burr Cells Occasional; Ovalocytes 1+; Schistocytes None Seen
[2025-08-17 13:02] LABS: Alanine Aminotransferase 222 U/L (6-35); Albumin Level 4.8 g/dL (3.5-5.1); Alkaline Phosphatase 77 U/L (38-126); Anion Gap 9 mmol/L (4-12); Aspartate Amino Transferase 348 U/L (14-36); Bilirubin,Total 1.1 mg/dL (0.2-1.3); Blood Urea Nitrogen 16 mg/dL (7-17); Calcium 9.3 mg/dL (8.4-10.2); Carbon Dioxide 31 mmol/L (22-30); Chloride 100 mmol/L (98-107); Estimated CRCL calculation 75 ml/min; Estimated Glomerular Filt Rate > 60; Glucose 105 mg/dL (65-110); Lipase 168 U/L (23-300); Potassium 2.8 mmol/L (3.4-5.0); Sodium 140 mmol/L (137-145); Total Protein 9.1 g/dL (6.3-8.2)
--- OUTSIDE RECORDS SUMMARY | 2025-08-17 13:09 | XMS_ITS | Encounter Summary ---
Author Organization [facility] Address [address] [place] [address] Care Team Providers Care Regional Safety Manager Name Role Phone Jeffery Barahona MD Primary Care Provider [phone] Encounter Details Date Type Department Care Team (Late st Contact Info) Description 08/16/2025 External Device Data [place] ABSTRACTION Provider, Abstract NO ADDRESS ON FILE Social History Tobacco Use Types Packs/Day Years Used Date Smoking Tobacco: Former Alcohol Use Standard Drinks/Week Comments Yes 0 (1 standard drink = 0.6 oz pur e alcohol) Feeling Safe Answer Date Recorded Are you in a relationship wi th someone who hurts you emotionally and/or physically? No 12/23/2024 Comments No Sex and Gender Information Value Date Recorded Sex Assigned at Not on file Legal Sex Female 11:31 AM [employer] Gender Identity Not on file Sexual Orientation Not on file documented as of this encounter Plan of Treatment Not on file documented as of this encounter Visit Diagnoses Not on filedocumented in this encounter Care Teams Regional Safety Manager Relationship Specialty Start Date End Date Jeffery Barahona MD [address] [place] [phone] PCP - General Family Practice 12/23/24 documented as of this encounter
--- OUTSIDE RECORDS SUMMARY | 2025-08-17 13:10 | XMS_ITS | Clinical Summary ---
Author Organization [facility] Address [address] [place] [address] Phone Care Team Providers Care Capsule Filler Name Role Phone Jeffery Barahona MD Primary Care Provider [phone] Allergies Active Allergy Reactions Criticality Noted Date Comments Codeine Rash Low 05/30/2009 Penicillins Nausea and Vomiting Low 05/23/2020 Medications propoxyphene N-acetaminophen (DARVOCET-N 100) 100-650 mg Oral Tab Take 1 Tab by mouth every 6 hours as needed for Pain. 12 Tab None 05/30/2009 Active Encounters Date Type Department Care Team Description 08/16/2025 External Device Data STL ABSTRACTION Provider, Abstract 08/09/2025 External Device Data ST[facility] ABSTRACTION Provider, Abstract 07/26/2025 External Device Data [facility] ABSTRACTION Provider, Abstract 07/26/2025 External Device Data [facility] ABSTRACTION Provider, Abstract 07/26/2025 External Device Data [facility] ABSTRACTION Provider, Abstract 07/19/2025 External Device Data [facility] ABSTRACTION Provider, Abstract 06/28/2025 External Device Data [facility] ABSTRACTION Provider, Abstract 06/28/2025 External Device Data [facility] ABSTRACTION Provider, Abstract 06/28/2025 External Device Data ST[facility] ABSTRACTION Provider, Abstract 06/24/2025 2:52 PM CDT - 06/24/2025 9:22 PM CDT Emergency [facility] Emergency Department [address] [place] [address] Violetta Cross MD Pfeiffer, Paul Rei, Seizure disorder (CMS/HCC) (Primary Dx); Noncompliance with medication regimen; Hypokalemia Discharge Disposition: Home or Self Care 06/24/2025 Travel 06/07/2025 External Device Data STL ABSTRACTION Provider, Abstract 06/07/2025 External Device Data STL ABSTRACTION Provider, Abstract from Last 3 Months Family History Medical History Relation Name Comments Healthy Father Healthy Mother Relation Name Status Comments Father Mother Social History Tobacco Use Types Packs/Day Years [...] on file 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 Gender Identity Not on file Sexual Orientation Not on file Last Filed Vital Signs Vital Sign Reading Time Taken Comments Blood Pressure 165/101 06/24/2025 8:20 PM CDT Pulse 59 06/24/2025 8:20 PM CDT Temperature 36.2 C (97.2 F) 06/24/2025 8:20 PM CDT Respiratory Rate 16 06/24/2025 8:20 PM CDT Oxygen Saturation 99% 06/24/2025 8:20 PM CDT Inhaled Oxygen Concentration - - Weight 81.6 kg (180 lb) 06/24/2025 2:49 PM CDT Height 167.6 cm (5' 6) 06/24/2025 2:49 PM CDT Body Mass Index 29.05 06/24/2025 2:49 PM CDT Plan of Treatment Health Maintenance Due Date Last Done Comments Pre-Diabetes and Diabetes Screening 1985 DTAP/TDAP/TD VACCINES (2 - Tdap) 11/20/2000 11/20/19 01 HEPATITIS B VACCINES (1 of 3 - 19+ 3-dose series) 10/16 HPV/Cotest (21-29) 2005 HPV VACCINES (1 - 3-dose SCDM series) 2011 CERVICAL CANCER SCREENING 2014 HPV/Cotest (30-65) 2014 PAP SMEAR 2014 BREAST CANCER SCREENING 2024 INFLUENZA VACCINE (#1) 2025 07/05/2022 COVID-19 Vaccine (2 - 2024- season) 2025 Procedures Procedure Name Priority Date/Time Associated Diagnosis Comments EKG 12-LEAD Stat 06/24/2025 4:41 PM CDT URINALYSIS W/REFLEX MICROSCOPIC Stat 06/24/2025 3:25 PM CDT POC , URINE Stat 06/24/2025 3:23 PM CDT RESPIRATORY PATHOGEN PCR PANEL Stat 06/24/2025 3:14 PM CDT MAGNESIUM LEVEL Stat 06/24/2025 3:12 PM CDT COMPREHENSIVE METABOLIC PANEL Stat 06/24/2025 3:12 PM CDT CBC WITH DIFFERENTIAL Stat 06/24/2025 3:12 PM CDT from Last 3 Months Results * EKG 12-LEAD (06/24/2025 4:41 PM CDT) 06/24/2025 4:41 PM CDT Narrative INTERFACE SYSTEM - 06/25/2025 10:18 AM CDT [address] [address] Test Date: 2025-06-24 Pat Name: HARSHAD LUCAS Department: 38 Room: 4 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1985 Requested By: VIOLETTA Perez Order Number: [id number] Reading MD: Niranjan Murphy Measurements Intervals [place] Rate: 60 P: -45 LA: 278 QRS: -4 QRSD: 109 T: -6 QT: 460 QTc: 460 Interpretive Statements Sinus atrial rhythm Prolonged LA interval Borderline T abnormalities, inferior leads Electronically Signed On 06-25-2025 10:18:13 CDT by Niranjan Murphy Procedure Note Niranjan Murphy MD - 06/25/[address], [place] [address] Test Date: 2025-06-24 Pat Name: HARSHAD LUCAS Department: 38 Room: H04 Gender: Female 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: trice : 1985 Requested By: VIOLETTA Perez Order Number: [id number] Reading MD: Niranjan Murphy Measurements Intervals [place] Rate: 60 P: -45 LA: 278 QRS: -4 QRSD: 109 T: -6 QT: 460 QTc: 460 Interpretive Statements Sinus atrial rhythm Prolonged LA interval Borderline T abnormalities, inferior leads Electronically Signed On 06-25-2025 10:18:13 CDT by Niranjan Murphy us Violetta Cross MD ECG ORDERABLES Final Result Performing Organization Address City/State/[facility] Co de Phone Number INTERFACE SYSTEM Refer to clinic/hospital department * (ABNORMAL) URINALYSIS WITH REFLEX MICROSCOPIC (06/24/2025 3:25 PM CDT) COLOR UA Pale Yellow Pale to Dark Yellow 06/24/2025 3:53 PM CDT [facility] - . [facility] CLARITY UA Clear Clear 06/24/2025 3:53 PM CDT [facility] - [facility] SPECIFIC GRAVITY UA 1.003 1.003 - 1.035 06/24/2025 3:53 PM CDT [facility] - [facility] PH UA 6.0 5.0 - 8.0 06/24/2025 3:53 PM CDT [facility] - . [facility] LEUKOCYTE ESTERASE UA Negative Negative 06/24/2025 3:53 PM CDT [facility] - . [facility] NITRITE UA Negative Negative 06/24/2025 3:53 PM CDT [facility] - . [facility] PROTEIN UA Negative Negative 06/24/2025 3:53 PM CDT [facility] - . [facility] GLUCOSE UA Negative Negative 06/24/2025 3:53 PM CDT [facility] - . [facility] KETONES UA Trace(A) Negative 06/24/2025 3:53 PM CDT [facility] - . [facility] UROBILINOGEN UA Normal <2.0 mg/dL 3:53 PM CDT [facility] - . [facility] BILIRUBIN UA Negative Negative 06/24/2025 3:53 PM CDT [facility] BLOOD UA Negative Negative 06/24/2025 3:53 PM CDT [facility] Urine URINE SPECIMEN OBTAINED BY CLEAN CATCH PROCEDURE / Unknown Collection / Unknown 06/24/2025 3:25 PM CDT 06/24/2025 3:27 PM CDT Violetta Cross MD URINE ORDERABLES Final Result Performing Organization Address [facility]/ZIP Co de Phone Number [facility] CLIA# [id number] [address] [place] [address] * POC , URINE (06/24/2025 3:23 PM CDT) [facility] HCG QUAL URINE Negative Negative 06/24/2025 3:23 PM CDT [facility] Urine 06/24/2025 3:23 PM CDT 06/24/2025 3:30 PM CDT Narrative [facility] - [facility] - 06/24/2025 3:23 PM CDT Positive : Result is greater than or equal to 25 mIU/mL Negative: Result is less than 25 mIU/mL Invalid: Result is borderline or indeterminate,send to lab for serum test methodology. Violetta Cross MD POINT OF CARE TESTING Final Re sult Performing Organization Address City/[facility]/ZIP Co de Phone Number [facility] CLIA# [id number] [address] [place] [address] * RESPIRATORY PATHOGEN PCR PANEL (06/24/2025 3:14 PM CDT) [facility] Respiratory Pathogen PCR Panel NOT DETECTED No respiratory pathogen nucleic acids detected. 06/24/2025 4:35 PM CDT [facility] COVID-19 PCR NOT DETECTED Not Detected 06/24/2025 4:35 PM [facility] Upper Respiratory ENTIRE NASOPHARYNX / Unknown Collection / Unknown 06/24/2025 3:14 PM CDT 06/24/2025 3:20 PM CDT [facility] - 06/24/2025 4:35 PM CDT The Film Array Respiratory Panel (RP2.1) is a multiplex nucleic acid detection test for 22 targets. Viruses: Adenovirus Coronavirus HKU1, NL63, 229E, and OC43 COVID-19/Severe Acute Respiratory Syndrome Coronavirus 2 Influenza A with the following subtypes: H1, H1-2009, and H3 Influenza B Human Metapneumovirus Parainfluenza virus 1, 2, 3, and 4 Respiratory Syncytial virus (RSV) Rhinovirus/Enterovirus (cannot differentiate due to genetic similarities) Bacteria: Bordetella pertussis Bordetella parapertussis Chlamydophila pneumoniae Mycoplasma pneumoniae Violetta Cross MD MICROBIOLOGY - GENERAL ORDERAB LES Final Result [facility]# [id number] [address] [place] [address] * (ABNORMAL) CBC WITH DIFFERENTIAL (06/24/2025 3:12 PM CDT) Pathologist [facility] WBC 4.8 4.0 - 9.8 K/uL 06/24/2025 3:49 PM CDT [facility] RBC 4.69 3.90 - 4.90 M/uL 06/24/2025 3:49 PM CDT [facility] HEMOGLOBIN 12.6 11.8 - 14.8 g/dL 06/24/2025 3:49 PM CDT [facility] HEMATOCRIT 38.0 35.5 - 44.0 % 06/24/2025 3:49 PM CDT [facility] MCV 81.0(L) 82.0 - 99.0 fL 06/24/2025 3:49 PM CDT [facility] MCH 26.9(L) 27.2 - 32.6 pg 06/24/2025 3:49 PM CDT [facility] - . [facility] MCHC 33.2 31.5 - 35.5 g/dL 06/24/2025 3:49 PM CDT [facility] RDW 15.2(H) 11.5 - 14.5 % 06/24/2025 3:49 PM CDT [facility] - [facility] RDW-STDEV 45.1 37.1 - 48.7 fL 06/24/2025 3:49 PM CDT [facility] - . [facility] PLATELETS 257 140 - 350 K/uL 06/24/2025 3:49 PM CDT [facility] - . [facility] MPV 9.8 9.3 - 12.4 fL 06/24/2025 3:49 PM CDT [facility] NEUTROPHILS 41 % 06/24/2025 3:49 PM CDT [facility] - . [facility] LYMPHOCYTES 48 % 06/24/2025 3:49 PM CDT [facility] MONOCYTES 8 % 06/24/2025 3:49 PM CDT [facility] EOSINOPHILS 2 % 06/24/2025 3:49 PM CDT [facility] BASOPHILS 2 % 06/24/2025 3:49 PM CDT [facility] . [facility] IMMATURE GRANULOCYTES 0 % 06/24/2025 3:49 PM CDT [facility] - . [facility] NEUTROPHIL ABSOLUTE 1.95 1.90 - 7.00 K/uL 06/24/2025 3:49 PM CDT [facility] LYMPHOCYTE ABSOLUTE 2.31 0.70 - 4.50 K/uL 06/24/2025 3:49 PM CDT [facility] MONOCYTE ABSOLUTE 0.36 0.10 - 1.30 K/uL 06/24/2025 3:49 PM CDT [facility] EOSINOPHIL ABSOLUTE 0.09 0.00 - 0.70 K/uL 06/24/2025 3:49 PM CDT [facility] BASOPHILS ABSOLUTE 0.07 0.00 - 0.20 K/uL 06/24/2025 3:49 PM CDT [facility] - [facility] IMMATURE GRANULOCYTES ABSOLUTE 0.01 0.00 - 0.03 K/uL 06/24/2025 3:49 PM CDT [facility] Blood Venipuncture / Unknown 06/24/2025 3:12 PM CDT 06/24/2025 3:20 PM CDT Violetta Cross MD HEMATOLOGY ORDERABLES Final Re sult Performing Organization Address [facility]/ZIP Co de Phone Number [facility] CLIA# [id number] [address] [place] [address] * MAGNESIUM LEVEL (06/24/2025 3:12 PM CDT) Pathologist [facility] MAGNESIUM 1.9 1.6 - 2.6 mg/dL 06/24/2025 4:05 PM CDT [facility] Blood Venipuncture / Unknown 06/24/2025 3:12 PM CDT 06/24/2025 3:20 PM CDT Violetta Cross MD CHEMISTRY ORDERABLES Final Res ult Performing Organization Address [facility] Co de Phone Number [facility] [employer] [facility] [id number] [address] [place] [address] * (ABNORMAL) COMPREHENSIVE METABOLIC PANEL (06/24/2025 3:12 PM CDT) Pathologist [facility] SODIUM 139 136 - 145 mmol/L 06/24/2025 4:05 PM CDT [facility] POTASSIUM 2.9(L) 3.5 - 5.0 mmol/L 06/24/2025 4:05 PM CDT [facility] CHLORIDE 96(L) 98 - 107 mmol/L 06/24/2025 4:05 PM CDT [facility] CO2 31(H) 22 - 29 mmol/L 06/24/2025 4:05 PM CDT [facility] CALCIUM 9.4 8.6 - 10.2 mg/dL 06/24/2025 4:05 PM [facility] BUN 8 6 - 20 mg/dL 06/24/2025 4:05 PM [facility] CREATININE 1.10(H) 0.51 - 0.95 mg/dL 06/24/2025 4:05 PM [facility] GLUCOSE 85 74 - 99 mg/dL 06/24/2025 4:05 PM [facility] TOTAL PROTEIN 7.6 6.7 - 8.6 g/dL 06/24/2025 4:05 PM [facility] ALBUMIN 4.8 3.5 - 5.2 g/dL 06/24/2025 4:05 PM [facility] BILIRUBIN TOTAL 0.6 0.0 - 1.2 mg/dL 06/24/2025 4:05 PM [facility] ALKALINE PHOSPHATASE 51 35 - 104 U/L 06/24/2025 4:05 PM [facility] AST 37(H) <33 U/L 06/24/2025 4:05 PM [facility] ALT 20 <34 U/L 06/24/2025 4:05 PM [facility] GFR >60 >=60 mL/min/1.7 3 sq meter 06/24/2025 4:05 PM [facility] Comment:eGFR calculated with 2020 CKD-EPI equation. Vegetarian diet, extremely high or low muscle mass, and may affect results. Cystatin C with Glomerular Filtration Rate is a suitable alternative for these patients. ANION GAP 12 8 - 16 mmol/L 06/24/2025 4:05 PM [facility] Blood Venipuncture / Unknown 06/24/2025 3:12 PM CDT 06/24/2025 3:20 PM T [facility]AT[facility] - 06/24/2025 4:05 PM T Samples containing indocyanine green cause interferences on Total and/or Direct Bilirubin and must not be measured. us Violetta Cross MD CHEMISTRY ORDERABLES Final Res ult [facility]# [id number] [address] [place] [address] from Last 3 Months Insurance [facility] [employer] ACCESS CHOICE [place] Care Teams Capsule Filler Relationship Specialty Start Date End Date Jeffery Barahona MD [address] [place] [phone] PCP - General Family Practice 12/23/24
--- OUTSIDE RECORDS SUMMARY | 2025-08-17 13:10 | XMS_ITS | Clinical Summary ---
Author Organization [facility] Address [address] [facility] [place] [address] Care Team Providers Care Planner Intern Name Role Phone Jeffery Barahona MD Primary Care Provider [phone] Source Comments [facility],non-owned Affiliates and Associated Physician Practices is amultiple site organization consisting of ambulatory clinics and hospital sitesin [place], [place], [place] and [place]. This disclosure is being madepursuant to the Care Everywhere program and may not contain all information available regarding this patient. Last updated 18.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 Not on file Not on file Last Filed Vital Signs Vital Sign Reading Time Taken Comments Blood Pressure 165/114 04/05/2025 8:10 AM CDT Pulse 66 04/05/2025 8:10 AM CDT Temperature 36.7 C (98.1 F) 10/01/2024 1:39 PM RETAIL LOAN ORIGINATOR ASSISTANT Respiratory Rate 18 10/01/2024 1:39 PM RETAIL LOAN ORIGINATOR ASSISTANT Oxygen Saturation 99% 04/05/2025 7:58 AM CDT [...] Reactive Non Reactive 04/17/2015 7:23 AM CDT [facility] HBsAg Non Reactive Non Reactive 04/17/2015 7:23 AM CDT [facility] HBc Antibody IgM Non Reactive Non Reactive 04/17/2015 7:23 AM CDT [facility] HCV Antibody Screen Non Reactive Non Reactive 04/17/2015 7:23 AM CDT [facility] HCV S/C Ratio 0.04 0.00 - 0.79 04/17/2015 7:23 AM CDT [facility] Comment: S/C ratio <0.80: Non Reactive Blood BLOOD SPECIMEN / Unknown Lab Venipuncture / Unknown 04/17/2015 5:37 AM CDT 04/17/2015 6:12 AM CDT Narrative [facility] - 04/17/2015 7:23 AM CDT Non Reactive - Antibodies to HCV were not detected, result does not exclude early acute HCV infection. us Mayte Persaud LIBRARY MEDIA SPECIALIST[facility] - CHEMISTRY ORDER TARIK Final Result [facility] [address] [place] [address] from Last 3 Months or Most Recently Relevant to Health Maintenance Insurance [facility] Advance Directives * Full Code (Latest Code Status on File) Date Activated Date Inactivated Comments 04/16/2015 10:23 PM 04/18/2015 12:44 PM Care Teams Planner Intern Relationship Specialty Start Date End Date Jeffery Barahona MD [address] [facility] [address] [place] [address] PCP - General Family Medicine 04/05/25
--- OUTSIDE RECORDS SUMMARY | 2025-08-17 13:10 | XMS_ITS | Clinical Summary ---
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 ANTHEM ACCESS CHOICE Care Teams Second Baller Relationship Specialty Start Date End Date Francheska Andrea NP PCP - General Nurse Practitioner 04/22/23
--- OUTSIDE RECORDS SUMMARY | 2025-08-17 13:10 | XMS_ITS | Patient Health Record ---
Author Organization [facility] Address [address] [place] [address] Care Team Providers Care Deputy Sheriff Bailiff Name Role Phone MRS. Francheska Andrea Primary Care Provider [phone] Allergies Allergen (clinical drug ingredient) Drug/Non Drug Allergy documented on EMR Reaction Allergy Type Onset Date Status codeine Codeine Unknown Drug Allergy Active Penicillin Unknown Drug Allergy Active Reason For [...] days Active Vitamin D (Ergocalciferol) 1.25 MG (30408 UT) Capsule Take 1 capsule by mouth [...] nts Flulaval Quad IM Intramuscular 07/05/2022 Administered OncoGenex Adult Covid 2nd Dose IM Intramuscular 07/05/2022 [...] Problem Status W/U Status Risk Notes Problem Vitamin D deficiency (90656042) Vitamin D deficiency (E55.9) Active confirmed Problem Migraine (46999670) Migraine (G43.909) Active confirmed Problem Neuropathy (524191462) Neuropathy (G62.9) Active confirmed Problem Smoking (59075771) Smoking (F17.200) Active confirmed Problem Anxiety disorder (470081934) Anxiety disorder, unspecified (F41.9) Active confirmed Problem Insomnia (796424468) Other insomnia (G47.09) Active confirmed Problem Essential hypertension (24636057) Essential (primary) hypertension (I10) Active confirmed Problem Enuresis (45670390) Enuresis (R32) Active confi rmed Problem Encopresis (394431851) Encopresis (R15.9) Active confirmed Problem Idiopathic sleep related non-obstructive alveolar hypoventilation (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
[2025-08-17] MEDS: POTASSIUM CHLORIDE 20 MEQ ER TABLET 40 MEQ PO (13:14)
[2025-08-17] MEDS: LACTATED RINGERS 1,000 ML 999 ML IV CONT (13:14)
[2025-08-17] MEDS: KCL 20 MEQ/SW 100 ML 100 ML 50 MEQ IVPB (14:10)
== END 2025-08-17 16:11 | disposition home or self-care (01) ==
PROVIDERS: Emergency Provider Emergency Medicine; PCP Emergency Medicine
DX: R11.2 Nausea with vomiting, unspecified (principal); E87.6 Hypokalemia; R74.01 Elevation of levels of liver transaminase levels; I10 Essential (primary) hypertension; G40.909 Epilepsy, unspecified, not intractable, without status epilepticus; F17.290 Nicotine dependence, other tobacco product, uncomplicated; Z90.711 Acquired absence of uterus with remaining cervical stump; Z79.899 Other long term (current) drug therapy
CPT/HCPCS: 36415; 80053; 83690; 85025; 85055; 96365; 96366; 96375; 99284; A9270; J0780; J1200; J3480; J7120